=== PATIENT | male | born 1945 | race Caucasian/White ===

== ENCOUNTER 2019-05-09 22:39 | Inpatient (IN) | payer MEDICARE, SELFPAY ==
[2019-05-09 22:39] VITALS: BP 135/85; PULSE 84; RESP 20; TEMP 37.1; O2SAT 100; BMI 23.8
[2019-05-09 23:00] VITALS: BP 137/55; PULSE 83; RESP 18; O2SAT 100
[2019-05-09 23:03] LABS: Add Manual Diff / Slide Review NO; Basophils Absolute Auto 0 /uL (0-100); Basophils Percent Auto 0.4 % (0-2); Eosinophils Absolute Auto 100 /uL (0-450); Eosinophils Percent Auto 0.9 % (2-4); Hematocrit 32.9 % (41-53); Hemoglobin 10.2 g/dL (13.5-17.5); Lymphocytes Absolute Auto 800 /uL (1100-4500); Lymphocytes Percent Auto 6.4 % (25-40); Mean Corpuscular HGB Conc 30.9 % (30-36); Mean Corpuscular Hemoglobin 20.9 PG (26-34); Mean Corpuscular Volume 67.7 fL (80-100); Monocytes Absolute Auto 500 /uL (0-900); Monocytes Percent Auto 4.2 % (3-14); Neutrophils Absolute Auto 10700 /uL (1500-7000); Neutrophils Percent Auto 88.1 % (50-75); Platelet Count 248 X10^3/uL (150-400); Red Blood Cell Count 4.86 X10^6/uL (4.5-5.9); Red Cell Distribution Width 19.6 % (11.6-14.8); White Blood Cell Count 12.2 X10^3/uL (4.5-11.0)
[2019-05-09 23:08] LABS: INR 1.1 (0.9-1.3)
[2019-05-09 23:10] LABS: PTT Partial Thromboplastin Tim 28 SECONDS (26.4-36.2)
[2019-05-09 23:12] LABS: Alanine Aminotransferase 21 IU/L (21-72); Albumin Globulin Ratio 1.3 (1.0-2.8); Alkaline Phosphatase 97 U/L (38-126); Aspartate Aminotransferase 28 IU/L (17-59); Bilirubin Total 0.5 mg/dL (0.2-1.3); Blood Urea Nitrogen 28 mg/dL (9-20); Carbon Dioxide 31 mmol/L (22-32); Chloride 99 mmol/L (98-107); Estimated Glomerular Filt Rate > 60.0 mL/min (>60); Glucose 165 mg/dL (80-110); HEMOLYSIS < 15 (0-50); Lipase 83 U/L (23-300); Potassium 3.8 mmol/L (3.4-5.1); Sodium 138 mmol/L (137-145)
--- NOTE | 2019-05-09 23:15 | ED_ITS ---
HPI - Abdominal Pain General Chief Complaint: Abdominal Pain Stated Complaint: epigastric ruq pain,nausea Time Seen by Provider: 05/09/19 23:15 Source: patient and EMS Mode of arrival: EMS Limitations: no limitations History of Present Illness HPI narrative: The patient arrives from [facility] by air ambulance. He had diarrhea yesterday, bowel movements normalized today. He assumed he had a gastroenteritis. About 3 ago he developed severe epigastric pain. He has nausea, but he cannot vomit. Pain is persistent. The pain is not radiating. He has CHF and takes Lasix. He has normal urine output. He does have a history of AFib. He takes aspirin no under anticoagulants. He has no history of PUD. He had no blood past yesterday when he had the diarrhea. He has no history of GI bleed. He does have a history of Crohn's disease, but has been asymptomatic for extended period of time. He also has chronic anemia. He has no sweats or chills. He has no chest pain or dyspnea with current symptoms. He has no pain similar to this previously. He has no history of GI surgery. Related Data Allergies Allergy/AdvReac Type Severity Reaction Status Date / Time codeine Allergy Verified 05/09/19 23:34 morphine Allergy Verified 05/09/19 23:34 Opioids - Morphine Analogues Allergy Verified 05/09/19 23:34 Review of Systems Review of Systems ROS Unobtainable: All systems reviewed & are unremarkable except as noted in HPI and below Constitutional Constitutional: Denies chills, Denies fever(s), Denies lethargy and Denies weakness Eyes Eyes: Denies change in vision ENT Ears, Nose, Mouth, and Throat: Denies change in voice, Denies neck pain and Denies sore throat Cardiovascular Cardiovascular: Denies chest pain, Denies lightheadedness, Denies palpitations, Denies dyspnea and Denies orthopnea Respiratory Respiratory: Denies cough, Denies dyspnea and Denies wheezing Comments: No orthopnea Gastrointestinal Gastrointestinal: Reports as per HPI, Reports abdominal pain, Reports diarrhea and Reports nausea Genitourinary Comments: No urinary complaints Musculoskeletal Musculoskeletal: Denies back pain and Denies neck pain Integumentary/Breasts Skin/Breast: Denies erythema and Denies rash Neurologic Neurologic: Denies confusion and Denies weakness Psychiatric Psychiatric: Denies anxiety, Denies confusion, Denies depression and Denies homicidal ideation Endocrine Endocrine: Denies palpitations Hematologic/Lymphatic Hematologic/Lymphatic: Denies easy bruising Allergic/Immunologic Allergic/Immunologic: Denies wheezing [facility] Medical History Atrial fibrillation (Acute) CHF (congestive heart failure) (Acute) Crohns disease (Acute) Surgical History No pertinent past surgical history (Acute) Social History Smoking Status: Never smoker Social History Smoking Status: Never smoker Exam Initial Vital Signs Initial Vital Signs: Vital Signs Temperature 98.8 F 05/09/19 22:39 Pulse Rate 84 05/09/19 22:39 Respiratory Rate 20 05/09/19 22:39 Blood Pressure 135/85 05/09/19 22:39 Pulse Oximetry 100 05/09/19 22:39 Const General: cooperative and well developed Nutritional Appearance: well nourished Orientation: alert, awake, oriented x3 and not confused Other: He appears uncomfortable [facility] Head: normocephalic and atraumatic Face and sinus: sinuses nontender Mouth: oral mucosae normal and moist mucous membranes Throat: posterior oropharynx abnormal Eyes General: appearance normal, both eyes and all related structures Eyelids: eyelids normal Conjunctivae: other (Spelled conjunctiva) Sclera: sclerae normal Pupils: PERRL EOM: EOM intact bilaterally Neck Neck: No JVD Chest Chest: normal inspection of the chest Resp Effort & Inspection: normal respiratory effort and able to speak in complete sentences Auscultation: clear to auscultation bilaterally, no rales, no rhonchi and no wheezes Cardio Rate: regular rate Rhythm: regular rhythm Heart Sounds: no click, no gallops, no murmurs and no rubs Pulses: normal peripheral pulses GI Inspection: distended Palpation: no hepatosplenomegaly and No pulsatile mass Auscultation: absent bowel sounds Other: Acutely tender in the epigastric/upper abdomen with guarding and rebound. Back/Spine/Pelvis Back: No CVA tenderness Skin General: no rashes or lesions noted, No jaundice and No petechiae Neuro General: alert, oriented x3, gait normal and no focal motor deficits Speech: speech normal Extrem General: full ROM, no pedal edema and no calf tenderness Course Course Course Narrative: The patient arrived with an acute abdomen. CT confirmed this with perforation, CT findings consistent with gastritis and perforation associated with his stomach. He was treated with Protonix. Once the diagnosis is clarified he was given IV Zosyn and Diflucan. Dr. Thomas, general surgeon, was consulted. He has been evaluated by the on-call surgery and will go to the OR. Orders Ordered: ED Orders 05/09/19 22:42 EKG-12 Lead Stat 05/09/19 22:51 Complete Blood Count AUTO DIFF Stat Comprehensive Metabolic Panel Stat Lipase Stat Partial Thromboplastin Time Stat Prothrombin Time INR Stat 05/09/19 23:22 CT abdomen pelvis w con Stat Sodium Chloride (Normal Saline 0.9%) 1,000 mls @ 150 mls/hr IV CONT MANNY Last Infusion: 05/10/19 02:02 Dose: 0 mls/hr Documented by: Infusion: 05/09/19 23:46 Dose: 1,000 mls/hr Documented by: Infusion: 05/09/19 23:32 Dose: 0 mls/hr Documented by: Admin: 05/09/19 23:32 Dose: 150 mls/hr Documented by: DYLLAN Discontinued Medications Fentanyl (Sublimaze) 50 mcg IV NOW ONE Stop: 05/10/19 01:00 Last Admin: 05/10/19 01:18 Dose: 50 mcg Documented by: DYLLAN Hydromorphone HCl (Dilaudid) 1 mg IV NOW ONE Stop: 05/09/19 23:23 Last Admin: 05/10/19 00:17 Dose: Not Given Documented by: DYLLAN Piperacillin/Tazobactam/Dextrose (Zosyn) 4.5 gm in 100 mls @ 200 mls/hr IV NOW ONE Stop: 05/10/19 01:27 Last Admin: 05/10/19 01:25 Dose: Not Given Documented by: DYLLAN Fluconazole (Diflucan) 200 mg in 100 mls @ 100 mls/hr IV NOW ONE Stop: 05/10/19 01:58 Piperacillin/Tazobactam/Dextrose (Zosyn) 3.375 gm in 50 mls @ 100 mls/hr IV NOW ONE Stop: 05/10/19 01:54 Last Infusion: 05/10/19 02:03 Dose: 0 mls/hr Documented by: Admin: 05/10/19 01:27 Dose: 100 mls/hr Documented by: DYLLAN Ondansetron HCl (Zofran) 4 mg IV NOW ONE Stop: 05/09/19 23:23 Last Admin: 05/09/19 23:31 Dose: 4 mg Documented by: DYLLAN Pantoprazole Sodium (Protonix) 40 mg IV NOW ONE Stop: 05/09/19 23:23 Last Admin: 05/09/19 23:31 Dose: 40 mg Documented by: DYLLAN Vital Signs Vital signs: Vital Signs - 8 hr 05/09/19 22:39 05/10/19 00:42 05/10/19 01:00 Temperature 98.8 F Pulse Rate 84 84 92 H Respiratory Rate 20 20 Blood Pressure 135/85 Blood Pressure [Left Arm] 143/63 H 158/64 H Pulse Oximetry 100 97 96 MDM - Abdominal Pain Lab Data Result diagrams: 05/09/19 22:51 05/09/19 22:51 Labs: Lab Results 05/09/19 05/09/19 05/09/19 Range/Units 22:51 22:51 22:51 WBC 12.2 H (4.5-11.0) X10^3/uL RBC 4.86 (4.5-5.9) X10^6/uL Hgb 10.2 L (13.5-17.5) g/dL Hct 32.9 L (41-53) % MCV 67.7 L (80-100) fL MCH 20.9 L (26-34) PG MCHC 30.9 (30-36) % RDW 19.6 H (11.6-14.8) % Plt Count 248 (150-400) X10^3/uL Neut % (Auto) 88.1 H (50-75) % Lymph % (Auto) 6.4 L (25-40) % [place] % (Auto) 4.2 (3-14) % Eos % (Auto) 0.9 L (2-4) % Baso % (Auto) 0.4 (0-2) % Neut # (Auto) 38098 H (4835-7179) /uL Lymph # (Auto) 800 L (6239-3019) /uL [place] # (Auto) 500 (0-900) /uL Eos # (Auto) 100 (0-450) /uL Baso # (Auto) 0 (0-100) /uL RBC Morphology See below Hypochromasia 1+ H Anisocytosis 2+ H Microcytosis 1+ H PT 13.0 H (10.1-12.7) SECONDS INR 1.1 (0.9-1.3) APTT 28 (26.4-36.2) SECONDS Sodium 138 (137-145) mmol/L Potassium 3.8 (3.4-5.1) mmol/L Chloride 99 (98-107) mmol/L Carbon Dioxide 31 (22-32) mmol/L BUN 28 H (9-20) mg/dL Creatinine 1.00 (0.66-1.25) mg/dL Estimated GFR > 60.0 (>60) mL/min BUN/Creatinine Ratio 28.0 H (6-22) Glucose 165 H (80-110) mg/dL Calcium 9.0 (8.4-10.2) mg/dL Total Bilirubin 0.5 (0.2-1.3) mg/dL AST 28 (17-59) IU/L ALT 21 (21-72) IU/L Alkaline Phosphatase 97 (38-126) U/L Total Protein 7.0 (6.3-8.2) g/dL Albumin 4.0 (3.5-5.0) g/dL Globulin 3.0 (1.7-4.1) g/dL Albumin/Globulin Ratio 1.3 (1.0-2.8) Lipase 83 (23-300) U/L Imaging Data CT scan - abdomen: Radiologist's impression: Intra-abdominal free air concerning for hollow visceral perforation. Hyper distended stomach with characteristics consistent with superimposed gastritis. Findings likely secondary to inflammatory versus infectious etiology. 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 ECG Data Attestation: I personally reviewed and interpreted this ECG as follows: Interpretation: AFib rate 77 beats per minute. No acute ST changes. Critical Care Time Critical Care Time Critical Care Time: Yes Total Critical Care Time: 45 Attestation: Evaluation included initial evaluation of patient, evaluation of lab and radiology studies, multiple clinical decisions, and consultation with the on-call surgeon proceeding transfer the patient to the ER. Discharge Plan Departure Patient Disposition: Admitted As Inpatient Clinical Impression: Perforated abdominal viscus Admit Date/Time: 05/10/19 01:08 Admit Provider: Minh Thomas
--- NOTE | 2019-05-09 23:22 | DI.CT.S_ITS ---
PROCEDURE: CT ABDOMEN PELVIS W CON INDICATIONS: Severe epigastric pain TECHNIQUE: After the administration of intravenous contrast, 5 mm thick sections acquired from the diaphragm to the symphysis. 5 mm coronal and sagittal reformats were acquired. For radiation dose reduction, the following was used: automated exposure control, adjustment of mA and/or kV according to patient size. COMPARISON: None. FINDINGS: Image quality: Excellent. ABDOMEN: Lung bases: Peripheral right middle lobe scarring. Heart size is normal. Solid organs: Liver is normal in size and enhancement. Gallbladder appears unremarkable. Biliary system is non dilated. Pancreas enhances normally. Spleen is normal in size and enhancement. No adrenal nodules. Kidneys demonstrate normal size and enhancement, without hydronephrosis. Partially exophytic 3.0 cm upper pole left renal cyst. Peritoneum and bowel: Small hiatal hernia. There is diffuse wall thickening of the distal esophagus with irregular, circumferential wall thickening of the distal gastric antrum and pylorus. There is focal area of thinning suggested near the ventral side of the gastric antrum best seen on image 27, series 2. There is moderate surrounding inflammatory changes as well as extraluminal locules of air. There is also a moderate amount of pneumoperitoneum in the upper abdomen. Scattered free fluid noted in the upper abdomen, more pronounced on the right side extending caudally along the paracolic gutter. Moderate amount of fecal material noted throughout the colon but most pronounced in the ascending colon, sigmoid colon and rectum. Findings are compatible with fecal stasis/constipation. Remaining bowel loops demonstrate normal wall thickness and caliber with nonspecific fluid filled loops of small bowel. Nodes and vessels: No retroperitoneal or mesenteric adenopathy by size criteria. Aorta and inferior vena cava are normal in size. Scattered atherosclerotic calcifications of the abdominal aorta and iliac vessels without aneurysmal dilatation. Miscellaneous: No ventral hernias. PELVIS: Genitourinary: Bladder wall thickness is normal. Miscellaneous: No pelvic adenopathy. Small fat containing bilateral inguinal hernias without acute inflammation. Bones: No suspicious bony lesions. No acute compression fractures of the imaged spine. Multilevel spondylosis. IMPRESSION: 1. Findings compatible with moderate gastritis and peptic ulcer disease with associated perforation. Location of perforation likely near the distal gastric antrum. There is a moderate amount of surrounding inflammation and moderate pneumoperitoneum. 2. Small lateral hernia with findings suggestive of distal esophagitis. 3. Fecal stasis/constipation. 4. Numerous loops of fluid-filled small bowel. This is nonspecific but may represent enteritis. No significant discrepancy with the shift foreman radiology preliminary report. Preliminary findings were discussed with Dr. Ness of emergency department by the overnight radiologist at 0055 hours. Dictated by: Javi Hurt M.D. on 05/10/2019 at 9:28 Approved by: Javi Hurt M.D. on 05/10/2019 at 9:41
[2019-05-09 23:23] LABS: Anisocytosis 2+; Hypochromasia 1+; Microcytosis 1+
[2019-05-09 23:30] VITALS: BP 134/60; PULSE 85; RESP 21; O2SAT 100
[2019-05-09] MEDS: ONDANSETRON 4 MG/2 ML INJ IV (23:31)
[2019-05-09] MEDS: PANTOPRAZOLE 40 MG VIAL IV (23:31)
[2019-05-09] MEDS: SODIUM CHLORIDE 0.9% 1,000 ML 150 ML IV (23:32)
--- NOTE | 2019-05-09 23:45 | PC.NURSE ---
oral contrast started.
[2019-05-10] VITALS (23 sets, daily range): BP systolic 107–158; BP diastolic 43–90; PULSE 75–104; RESP 10–25; TEMP 36.4–37.1; O2SAT 91–100; BMI 30.7
--- NOTE | 2019-05-10 00:14 | PC.NURSE ---
patient unable to hold down the oral contrast. patient vomited 2x. Dr. Ness notified and he ordered for the CT scan to just be done with IV contrast.
[2019-05-10] MEDS: fentaNYL 100 MCG/2 ML INJ 50 MCG IV (01:18)
[2019-05-10] MEDS: PIPERACILLIN-TAZO 3.375 GM/50 ML FROZ.PIGGY IV ×4 (01:27→18:58)
--- NOTE | 2019-05-10 01:30 | P.HP_ITS ---
History of Present Illness History of Present Illness Date Patient Seen: 05/10/19 Time Patient Seen: 01:59 Chief complaint: epigastric ruq pain,nausea Narrative: 74-year-old male with a perforated peptic ulcer. The patient is a 74-year-old male recently began taking increased amounts of uncoated aspirin over the past 4 days developed acute onset of epigastric pain tonight associated with nausea and vomiting. He was flown from [facility], CT shows free air as well as fluid around the stomach and the duodenum. His medical history is significant for Crohn's disease remotely. He had multiple endo rectal procedures done in the for Crohn's colitis. His Crohn's disease and has been in remission for the past two decades and he is not currently on therapy. Medical history significant for congestive heart failure, atrial fibrillation and previous exploratory laparotomy in [facility] for unclear reasons. Patient History Medical History Atrial fibrillation (Acute) CHF (congestive heart failure) (Acute) Crohns disease (Acute) Surgical History No pertinent past surgical history (Acute) Social History Smoking Status: Never smoker Family & Social History Safety & Behavioral: Feels Safe in Current Yes Environment Been Physically Hurt or No Threatened By a Person Tobacco & Substance use: Smoking Status Never smoker Substance Use Type does not use Meds Home Medications and Allergies Allergies Allergy/AdvReac Type Severity Reaction Status Date / Time codeine Allergy Verified 05/09/19 23:34 morphine Allergy Verified 05/09/19 23:34 Opioids - Morphine Analogues Allergy Verified 05/09/19 23:34 Review of Systems Review of Systems ROS Unobtainable: All systems reviewed & are unremarkable except as noted in HPI and below Exam Vital Signs (past 8 hours): - 05/09/19 22:39 05/10/19 00:42 05/10/19 01:00 Temperature 98.8 F Pulse Rate 84 84 92 H Respiratory Rate 20 20 Blood Pressure 135/85 Blood Pressure [Left Arm] 143/63 H 158/64 H Pulse Oximetry 100 97 96 Oxygen Delivery Method Room Air Narrative Exam Narrative: General-adult male with significant discomfort, well nourished HEENT-moist mucous membranes, no scleral icterus Neck-supple, no lymphadenopathy Chest- no labored respirations, clear to auscultation bilaterally Cardiac-regular rate and rhythm Abdomen-peritonitis. lower transverse incision Extremities-no edema, warm well perfused Neurological-alert and oriented x 3. No focal deficits Skin-normal temperature and turgor, no rashes or ulcers Objective Labs Result Diagrams: 05/09/19 22:51 05/09/19 22:51 Labs: Laboratory Results - last 24 hr 05/09/19 05/09/19 05/09/19 22:51 22:51 22:51 WBC 12.2 H RBC 4.86 Hgb 10.2 L Hct 32.9 L MCV 67.7 L MCH 20.9 L MCHC 30.9 RDW 19.6 H Plt Count 248 Neut % (Auto) 88.1 H Lymph % (Auto) 6.4 L [place] % (Auto) 4.2 Eos % (Auto) 0.9 L Baso % (Auto) 0.4 Neut # (Auto) 79301 H Lymph # (Auto) 800 L [place] # (Auto) 500 Eos # (Auto) 100 Baso # (Auto) 0 RBC Morphology See below Hypochromasia 1+ H Anisocytosis 2+ H Microcytosis 1+ H PT 13.0 H INR 1.1 APTT 28 Sodium 138 Potassium 3.8 Chloride 99 Carbon Dioxide 31 BUN 28 H Creatinine 1.00 Estimated GFR > 60.0 BUN/Creatinine Ratio 28.0 H Glucose 165 H Calcium 9.0 Total Bilirubin 0.5 AST 28 ALT 21 Alkaline Phosphatase 97 Total Protein 7.0 Albumin 4.0 Globulin 3.0 Albumin/Globulin Ratio 1.3 Lipase 83 Assessment & Plan Assessment and plan (1) Peptic ulcer: Current visit: Yes Status: Acute Assessment & Plan narrative: 74-year-old male with acute epigastric pain, workup consistent with perforated peptic ulcer. Hemodynamically stable, with peritonitis. CT reviewed personally demonstrates free air and fluid around the stomach and duodenum. Recent signficant ASA use. Multiple prior abdominal surgeries and a history of Crohn's disease not on therapy currently, and congestive heart failure. -exploratory laparotomy with Scott patch repair. I discussed the risks of the operation with him including bleeding infection damage to surrounding structures leak need for further procedure. His questions have been answered and he is in agreement with this plan -Zosyn and fluconazole -ICU postoperatively -NPO IV fluids Grant catheter
[2019-05-10] MEDS: LACTATED RINGERS 1,000 ML 42 ML IV (02:15)
--- NOTE | 2019-05-10 02:45 | PC.NURSE ---
i attempted to do patients medication reconcile but patient left for surgery. medication reconciliation not done because i cannot verify with the patient when he takes what medication.
--- NOTE | 2019-05-10 02:52 | SUR.OPER ---
Supine on padded OR bed, head on pillow, arms secured on padded arm boards at <90 degrees abduction, legs uncrossed, safety belt at thigh, tape over blanket over lower legs.
--- NOTE | 2019-05-10 03:49 | PM.OP.1 ---
Operative Date/Time/Diagnoses Date of procedure: 05/10/19 Time of procedure: 03:49 Pre-op diagnosis: Perforated Peptic ulcer Post-op diagnosis: same Procedure & Clinicians Procedure: Exploratory laparotomy Scott patch repair peptic ulcer Same procedure as scheduled: Yes Indications: 74-year-old man who developed acute epigastric pain CT abdomen pelvis with free fluid in for free air with fluid around the stomach and duodenum. He has been on high dose of uncoated aspirin recently. Surgeon: Minh Thomas Click Yes if Unassisted: No Anesthesia Type: General Operative Notes Findings: perforation on anterior aspect of pyloric channel Estimated Blood Loss (mL): 50 Procedure in detail: Patient was brought to the operating room placed supine on the table. Bilateral lower extremity compression devices were applied. He received 3.375 g of Zosyn prior to skin incision. General anesthesia was induced and he was intubated with an endotracheal tube. He was prepped and draped in sterile fashion. A time-out was performed ensure the correct patient procedure necessary equipment within the operating room. I made a generous midline incision and the subcutaneous tissues were divided with electrocautery. The omentum was plastered to the midline secondary to previous abdominal surgery. The omentum was mobilized off of the fascia and the abdomen entered. There was a significant amount of free fluid within the abdomen gastric in appearance. The stomach was inspected and there was a perforation on the anterior aspect of the pyloric channel. The ulcer edges were fairly clean the ulcer was approximately of 5 mm in diameter. The ulcer was primarily closed with [id number] Vicryl suture. I then mobilized a tongue of the greater omentum as a pedicled flap which was overlaid on top of the ulcer. This was secured to the stomach using interrupted with 3 0 silk suture. Hemostasis was obtained. The abdomen was then irrigated with several liters of sterile water. The fascia was closed with #1 Maxon in running fashion. The skin was then irrigated and closed with ashley. Patient tolerated the procedure well. Sponge instrument count at the end operation was correct. The emerged from anesthesia and was transferred to the postoperative care unit in stable condition. Post-operative Condition: stable Disposition: ICU
[2019-05-10] MEDS: ACETAMINOPHEN IV 1,000 MG/100 ML VIAL 400 MG IV (04:10)
[2019-05-10] MEDS: DEXTROSE 5%-0.9% NS 1,000 ML 100 ML IV ×2 (05:06→18:59)
[2019-05-10] MEDS: LORazepam 2 MG/ML INJ 0.25 MG IV (05:20)
[2019-05-10] MEDS: HYDROMORPHONE 0.5 MG INJ IV ×2 (05:21→13:53)
[2019-05-10] MEDS: FLUCONAZOLE 400 MG/200 ML PIGGYBACK 100 MG IV (05:30)
--- NOTE | 2019-05-10 07:04 | PC.NURSE ---
Received patient from PACU at 0430. A/Ox3, mildly anxious r/t Grant, which is patent and draining clear yellow urine. IV lorazepam and IV Dilaudid given per prn orders. NGT patent to LIS, dark bile fluid out. Abdominal drsg CDI. A-fib CVR, VSS, SpO2 98% on 2L NC. SCDs on.
[2019-05-10 12:13] LABS: Hematocrit 31.1 % (41-53); Hemoglobin 9.6 g/dL (13.5-17.5); Mean Corpuscular HGB Conc 30.8 % (30-36); Mean Corpuscular Hemoglobin 21.1 PG (26-34); Mean Corpuscular Volume 68.4 fL (80-100); Platelet Count 229 X10^3/uL (150-400); Red Blood Cell Count 4.55 X10^6/uL (4.5-5.9); Red Cell Distribution Width 19.5 % (11.6-14.8); White Blood Cell Count 14.8 X10^3/uL (4.5-11.0)
[2019-05-10 12:14] LABS: Add Manual Diff / Slide Review YES
[2019-05-10 12:23] LABS: BUN Creatinine Ratio 20.9 (6-22); Blood Urea Nitrogen 23 mg/dL (9-20); Calcium 8.8 mg/dL (8.4-10.2); Carbon Dioxide 30 mmol/L (22-32); Chloride 100 mmol/L (98-107); Estimated Glomerular Filt Rate > 60.0 mL/min (>60); Glucose 238 mg/dL (80-110); HEMOLYSIS < 15 (0-50); Potassium 4.4 mmol/L (3.4-5.1); Sodium 140 mmol/L (137-145)
[2019-05-10 12:42] LABS: Neutrophils Absolute Manual 13320 /uL (3000-5900); Total Cells Counted 100
[2019-05-10 12:43] LABS: Anisocytosis 1+
--- NOTE | 2019-05-10 13:20 | CM.DANOTE ---
DCP Assessment: Reviewed EMR. Pt is a 74 yr old male who was admitted to the hospital through the ED for a peptic ulcer bleed. Pt had a peptic ulcer repair preformed by Dr. Marhta Wilkinson on 05/10/19. PCP not listed. Pt current lives with his brother on [address] in the Guest house on the his property. Pt stated his family is currently out of the country in [place] for a month. Insurance: 1st payer: medicare 2nd payer: self pay. pt stated concern for medical bill exceeding his medicare maximum. RN offered pt to speak with admission counselors to discuss insurance and financial issues. Pt agreed and call was placed to admission counselors to F/U. Plan: current discharge plan is unclear at this time and will need further F/U once pt is more stable. Pt is very active and travels regularly, pt is completely 'I at baseline with Sudha Gipson RN Discharge Planning/Care Management CM Discharge Assessment Start: 05/10/19 13:15 Freq: Status: Active Protocol: Document 05/10/19 13:16 HS (Rec: 05/10/19 13:19 [id number]) Discharge Planning Assessment Assigned Toy Department Manager Any Gipson RN DPOA/Assigned Designee Name Bharath Catalan (brother) Contact Information [phone] Advance Directives? No History Provided By Patient,Medical Record Has Patient been admitted in last 30 No days? Prior Living Arrangements House Comment pt lives on his brothers property in the guest house on [address] Household Members family Type of transporation used prior to Drives own vehicle admit Independent with ADL's Yes Is patient alert and oriented? Yes Caregiver for Another No Comment Discharge needs unclear at this time will continue to monitor. Whiteboard Updated in Patient Room with Yes name and ext. # of Toy Department Manager Review Status In Process Next Review Type Continued Stay Review
[2019-05-10] MEDS: AMOXICILLIN 250 MG CAPSULE 1000 MG PO ×2 (13:45→21:17)
[2019-05-10] MEDS: CLARITHROMYCIN 500 MG TABLET PO ×2 (13:45→21:17)
[2019-05-10] MEDS: metroNIDAZOLE 500 MG TABLET PO ×2 (13:46→21:19)
[2019-05-10] MEDS: SODIUM CHLORIDE 0.9% 1,000 ML 1000 ML IV (13:46)
--- NOTE | 2019-05-10 14:10 | PC.NURSE ---
pt pod #1- s/p exp lap for perforated peptic ulcer, vss afebrile- medicated for incisional pain x 1 with iv dialudid ( o.5mg) which was effective, suazo with adequate uop, ngt clamped for 1 hour post po meds per md orders, denies nausea and up to chair with SBA. Changed to floor care per Dr. Thomas's verbal order this am.- otherwise remaining npo
[2019-05-10] MEDS: HYDROMORPHONE 1 MG INJ IV (19:32)
[2019-05-10] MEDS: NITROGLYCERIN 0.4 MG SL TAB SL (21:00)
[2019-05-10] MEDS: HYDROMORPHONE 2 MG INJ 1 MG IV (21:18)
[2019-05-10] MEDS: PANTOPRAZOLE 40 MG TABLET PO (21:19)
[2019-05-10 21:30] LABS: Creatine Kinase 222 U/L (55-170)
[2019-05-10 21:43] LABS: Troponin I < 0.012 ng/mL (0.01-0.034)
[2019-05-10 21:46] LABS: CKMB % Relative Index 0.9 % (1.5-5.0)
--- NOTE | 2019-05-10 21:57 | PC.NURSE ---
1699 - Pt c/o of 7 of 10 abd pain following repositioning. Discussed pain control options. Educated to splinting and turning to side lying prior to attempting to sit up. Maddison CABRALES. paged to review pain medication orders. Pt declines to have additional medication at this time. Monitor. 1934 - Pt again c/o 7 of 10 pain, increasing with hiccups. Dilaudid given. Pt resting quietly with cool cloth over his eyes. 2044 - Pt heard to be moaning and tachypneic. Pt reports sudden onset chest and shoulder pain. Chest pain is sharp with a dull ache to bilateral clavicles. The worst pain I have ever had. Dr. Ryan notified. Orders obtained. Following 1 nitro s.l. pt pain reduced to a 7 of 10, following a now dose of Dilaudid, pt reports pain reduced to 2 of 10. EKG, cardiac labs obtained.
--- NOTE | 2019-05-10 22:44 | P.PN_ITS ---
Subjective Subjective Date Patient Seen: 05/10/19 Time Patient Seen: 19:56 Interval history: Patient was having chest pain across his mid chest radiating into his shoulders. It was the worst pain he has ever felt. It was worse than when his shoulder was dislocated. Exam Vital Signs (past 8 hours): - 05/10/19 16:00 05/10/19 20:00 05/10/19 20:47 Temperature 98.2 F 98.4 F Pulse Rate 75 88 87 Respiratory Rate 18 18 Blood Pressure 124/65 131/60 154/87 H Pulse Oximetry 99 05/10/19 21:00 05/10/19 21:05 Temperature Pulse Rate 94 H 88 Respiratory Rate Blood Pressure 154/87 H 153/86 H Pulse Oximetry Oxygen Delivery Method Room Air Oxygen Flow Rate 0 Narrative Exam Narrative: Lungs are clear. Heart distant tones. No murmurs. Objective Labs Result Diagrams: 05/10/19 11:53 05/10/19 11:53 Labs: Laboratory Results - last 24 hr 05/09/19 05/09/19 05/09/19 22:51 22:51 22:51 WBC 12.2 H RBC 4.86 Hgb 10.2 L Hct 32.9 L MCV 67.7 L MCH 20.9 L MCHC 30.9 RDW 19.6 H Plt Count 248 Neut % (Auto) 88.1 H Lymph % (Auto) 6.4 L [place] % (Auto) 4.2 Eos % (Auto) 0.9 L Baso % (Auto) 0.4 Neut # (Auto) 74492 H Lymph # (Auto) 800 L [place] # (Auto) 500 Eos # (Auto) 100 Baso # (Auto) 0 Total Counted Seg Neutrophils % Band Neutrophils % Lymphocytes % (Manual) Monocytes % (Manual) Neutrophils # (Manual) RBC Morphology See below Hypochromasia 1+ H Anisocytosis 2+ H Microcytosis 1+ H PT 13.0 H INR 1.1 APTT 28 Sodium 138 Potassium 3.8 Chloride 99 Carbon Dioxide 31 BUN 28 H Creatinine 1.00 Estimated GFR > 60.0 BUN/Creatinine Ratio 28.0 H Glucose 165 H Calcium 9.0 Total Bilirubin 0.5 AST 28 ALT 21 Alkaline Phosphatase 97 Total Creatine Kinase CK-MB (CK-2) CK-MB (CK-2) Rel Index Troponin I Total Protein 7.0 Albumin 4.0 Globulin 3.0 Albumin/Globulin Ratio 1.3 Lipase 83 Nasal Screen MRSA (PCR) 05/10/19 05/10/19 05/10/19 04:45 11:53 11:53 WBC 14.8 H RBC 4.55 Hgb 9.6 L Hct 31.1 L MCV 68.4 L MCH 21.1 L MCHC 30.8 RDW 19.5 H Plt Count 229 Neut % (Auto) Not Reportable Lymph % (Auto) Not Reportable [place] % (Auto) Not Reportable Eos % (Auto) Not Reportable Baso % (Auto) Not Reportable Neut # (Auto) Lymph # (Auto) Not Reportable [place] # (Auto) Not Reportable Eos # (Auto) Baso # (Auto) Not Reportable Total Counted 100 Seg Neutrophils % 80.0 H Band Neutrophils % 10.0 H Lymphocytes % (Manual) 6.0 L Monocytes % (Manual) 4.0 Neutrophils # (Manual) 63986 H RBC Morphology Not Reportable Hypochromasia Anisocytosis 1+ H Microcytosis PT INR APTT Sodium 140 Potassium 4.4 Chloride 100 Carbon Dioxide 30 BUN 23 H Creatinine 1.10 Estimated GFR > 60.0 BUN/Creatinine Ratio 20.9 Glucose 238 H Calcium 8.8 Total Bilirubin AST ALT Alkaline Phosphatase Total Creatine Kinase CK-MB (CK-2) CK-MB (CK-2) Rel Index Troponin I Total Protein Albumin Globulin Albumin/Globulin Ratio Lipase Nasal Screen MRSA (PCR) Negative for mrsa 05/10/19 21:10 WBC RBC Hgb Hct MCV MCH MCHC RDW Plt Count Neut % (Auto) Lymph % (Auto) [place] % (Auto) Eos % (Auto) Baso % (Auto) Neut # (Auto) Lymph # (Auto) [place] # (Auto) Eos # (Auto) Baso # (Auto) Total Counted Seg Neutrophils % Band Neutrophils % Lymphocytes % (Manual) Monocytes % (Manual) Neutrophils # (Manual) RBC Morphology Hypochromasia Anisocytosis Microcytosis PT INR APTT Sodium Potassium Chloride Carbon Dioxide BUN Creatinine Estimated GFR BUN/Creatinine Ratio Glucose Calcium Total Bilirubin AST ALT Alkaline Phosphatase Total Creatine Kinase 222 H CK-MB (CK-2) 1.90 CK-MB (CK-2) Rel Index 0.9 L Troponin I < 0.012 Total Protein Albumin Globulin Albumin/Globulin Ratio Lipase Nasal Screen MRSA (PCR) Assessment & Plan Assessment & Plan narrative: Patient was placed on supplemental oxygen, given sublingual nitro, Dilaudid, and Ativan. His EKG showed no evidence of ischemia. His pain resolved and he was left with his pain in his abdomen. I believe this was atypical chest pain and not cardiac related. Cardiac enzymes negative.
[2019-05-11] VITALS (8 sets, daily range): BP systolic 131–141; BP diastolic 72–83; PULSE 86–92; RESP 20–26; TEMP 36.4–38.2; O2SAT 90–99
[2019-05-11] MEDS: HYDROMORPHONE 1 MG INJ IV ×5 (01:31→21:00)
[2019-05-11] MEDS: LORazepam 2 MG/ML INJ 0.5 MG IV ×3 (01:46→11:55)
[2019-05-11] MEDS: PIPERACILLIN-TAZO 3.375 GM/50 ML FROZ.PIGGY IV ×3 (03:41→20:34)
[2019-05-11] MEDS: FLUCONAZOLE 400 MG/200 ML PIGGYBACK 100 MG IV (04:14)
[2019-05-11 05:25] LABS: Add Manual Diff / Slide Review NO; Basophils Absolute Auto 0 /uL (0-100); Basophils Percent Auto 0.1 % (0-2); Eosinophils Absolute Auto 0 /uL (0-450); Hematocrit 30.3 % (41-53); Hemoglobin 9.2 g/dL (13.5-17.5); Lymphocytes Absolute Auto 600 /uL (1100-4500); Lymphocytes Percent Auto 4.1 % (25-40); Mean Corpuscular HGB Conc 30.4 % (30-36); Mean Corpuscular Volume 68.9 fL (80-100); Monocytes Absolute Auto 1200 /uL (0-900); Monocytes Percent Auto 7.7 % (3-14); Neutrophils Absolute Auto 13300 /uL (1500-7000); Neutrophils Percent Auto 88.1 % (50-75); Platelet Count 219 X10^3/uL (150-400); Red Blood Cell Count 4.39 X10^6/uL (4.5-5.9); Red Cell Distribution Width 19.7 % (11.6-14.8); White Blood Cell Count 15.1 X10^3/uL (4.5-11.0)
[2019-05-11 05:31] LABS: BUN Creatinine Ratio 24.4 (6-22); Blood Urea Nitrogen 22 mg/dL (9-20); Calcium 8.6 mg/dL (8.4-10.2); Carbon Dioxide 27 mmol/L (22-32); Chloride 104 mmol/L (98-107); Estimated Glomerular Filt Rate > 60.0 mL/min (>60); Glucose 146 mg/dL (80-110); HEMOLYSIS < 15 (0-50); Magnesium 2.2 mg/dL (1.6-2.3); Phosphorous 3.7 mg/dL (2.3-3.7); Potassium 4.1 mmol/L (3.4-5.1); Sodium 141 mmol/L (137-145)
[2019-05-11 05:51] LABS: Troponin I < 0.012 ng/mL (0.01-0.034)
[2019-05-11 06:18] LABS: Anisocytosis 1+
[2019-05-11] MEDS: DEXTROSE 5%-0.9% NS 1,000 ML 100 ML IV ×2 (08:54→18:26)
[2019-05-11] MEDS: metroNIDAZOLE 500 MG TABLET PO ×2 (11:28→21:00)
[2019-05-11] MEDS: PANTOPRAZOLE 40 MG TABLET PO (11:28)
[2019-05-11] MEDS: CLARITHROMYCIN 500 MG TABLET PO ×2 (11:29→21:00)
[2019-05-11] MEDS: AMOXICILLIN 250 MG CAPSULE 1000 MG PO ×2 (11:29→21:00)
--- NOTE | 2019-05-11 11:33 | PM.PNPO.1 ---
Subjective Subjective Date Patient Seen: 05/11/19 Time Patient Seen: 11:33 Interval history: Had an episode of chest pain overnight which was evaluated with cardiac markers and EKG workup was negative. Has subsequently resolved. Moderate incisional pain well controlled with Dilaudid. Exam Vital Signs (past 8 hours): - 05/11/19 04:24 05/11/19 07:44 Temperature 97.6 F 97.9 F Pulse Rate 86 91 H Respiratory Rate 22 21 Blood Pressure 131/77 134/74 Pulse Oximetry 99 97 Oxygen Delivery Method Nasal Cannula Oxygen Flow Rate 0 Narrative Exam Narrative: General adult male alert oriented no acute distress nasogastric tube in place with gastric content Chest nonlabored respirations no audible wheezes Abdomen appropriately tender to palpation, midline incision clean dry intact Objective Labs Result Diagrams: 05/11/19 04:49 05/11/19 04:49 Labs: Laboratory Results - last 24 hr 05/10/19 05/10/19 05/10/19 11:53 11:53 21:10 WBC 14.8 H RBC 4.55 Hgb 9.6 L Hct 31.1 L MCV 68.4 L MCH 21.1 L MCHC 30.8 RDW 19.5 H Plt Count 229 Neut % (Auto) Not Reportable Lymph % (Auto) Not Reportable [place] % (Auto) Not Reportable Eos % (Auto) Not Reportable Baso % (Auto) Not Reportable Neut # (Auto) Lymph # (Auto) Not Reportable [place] # (Auto) Not Reportable Eos # (Auto) Baso # (Auto) Not Reportable Total Counted 100 Seg Neutrophils % 80.0 H Band Neutrophils % 10.0 H Lymphocytes % (Manual) 6.0 L Monocytes % (Manual) 4.0 Neutrophils # (Manual) 14729 H RBC Morphology Not Reportable Anisocytosis 1+ H Sodium 140 Potassium 4.4 Chloride 100 Carbon Dioxide 30 BUN 23 H Creatinine 1.10 Estimated GFR > 60.0 BUN/Creatinine Ratio 20.9 Glucose 238 H Calcium 8.8 Phosphorus Magnesium Total Creatine Kinase 222 H CK-MB (CK-2) 1.90 CK-MB (CK-2) Rel Index 0.9 L Troponin I < 0.012 05/11/19 05/11/19 05/11/19 04:49 04:49 04:49 WBC 15.1 H RBC 4.39 L Hgb 9.2 L Hct 30.3 L MCV 68.9 L MCH 21.0 L MCHC 30.4 RDW 19.7 H Plt Count 219 Neut % (Auto) 88.1 H Lymph % (Auto) 4.1 L [place] % (Auto) 7.7 Eos % (Auto) 0.0 L Baso % (Auto) 0.1 Neut # (Auto) 60761 H Lymph # (Auto) 600 L [place] # (Auto) 1200 H Eos # (Auto) 0 Baso # (Auto) 0 Total Counted Seg Neutrophils % Band Neutrophils % Lymphocytes % (Manual) Monocytes % (Manual) Neutrophils # (Manual) RBC Morphology See below Anisocytosis 1+ H Sodium 141 Potassium 4.1 Chloride 104 Carbon Dioxide 27 BUN 22 H Creatinine 0.90 Estimated GFR > 60.0 BUN/Creatinine Ratio 24.4 H Glucose 146 H Calcium 8.6 Phosphorus 3.7 Magnesium 2.2 Total Creatine Kinase CK-MB (CK-2) CK-MB (CK-2) Rel Index Troponin I < 0.012 Assessment & Plan Post-op Postoperative Procedures: Procedures Operation Date: 05/10/19 01:55 Actual Procedures Side Surgeon p Exploratory Laparotomy GEN Not Applicable Minh Thomas MD Postoperative day: 1 Postoperative status narrative: 74-year-old male postoperative day 1 status post exploratory laparotomy and Scott patch repair of a perforated peptic ulcer of the pyloric channel. Doing well. Labs reviewed, white blood cell count 15, hematocrit 30 electrolytes within normal limits. -continue nasogastric tube to intermittent suction -Protonix -remove for Grant catheter, urine output is adequate creatinine normal -transfer to floor -continue antibiotics as written -likely remove nasogastric tube 05/12
--- NOTE | 2019-05-11 11:40 | P.PN_ITS ---
Subjective Subjective Date Patient Seen: 05/11/19 Time Patient Seen: 11:40 Interval history: No acute interval events. Tolerated bowel prep. Exam Vital Signs (past 8 hours): - 05/11/19 04:24 05/11/19 07:44 Temperature 97.6 F 97.9 F Pulse Rate 86 91 H Respiratory Rate 22 21 Blood Pressure 131/77 134/74 Pulse Oximetry 99 97 Oxygen Delivery Method Nasal Cannula Oxygen Flow Rate 0 Objective Labs Result Diagrams: 05/11/19 04:49 05/11/19 04:49 Labs: Laboratory Results - last 24 hr 05/10/19 05/10/19 05/10/19 11:53 11:53 21:10 WBC 14.8 H RBC 4.55 Hgb 9.6 L Hct 31.1 L MCV 68.4 L MCH 21.1 L MCHC 30.8 RDW 19.5 H Plt Count 229 Neut % (Auto) Not Reportable Lymph % (Auto) Not Reportable [place] % (Auto) Not Reportable Eos % (Auto) Not Reportable Baso % (Auto) Not Reportable Neut # (Auto) Lymph # (Auto) Not Reportable [place] # (Auto) Not Reportable Eos # (Auto) Baso # (Auto) Not Reportable Total Counted 100 Seg Neutrophils % 80.0 H Band Neutrophils % 10.0 H Lymphocytes % (Manual) 6.0 L Monocytes % (Manual) 4.0 Neutrophils # (Manual) 83580 H RBC Morphology Not Reportable Anisocytosis 1+ H Sodium 140 Potassium 4.4 Chloride 100 Carbon Dioxide 30 BUN 23 H Creatinine 1.10 Estimated GFR > 60.0 BUN/Creatinine Ratio 20.9 Glucose 238 H Calcium 8.8 Phosphorus Magnesium Total Creatine Kinase 222 H CK-MB (CK-2) 1.90 CK-MB (CK-2) Rel Index 0.9 L Troponin I < 0.012 05/11/19 05/11/19 05/11/19 04:49 04:49 04:49 WBC 15.1 H RBC 4.39 L Hgb 9.2 L Hct 30.3 L MCV 68.9 L MCH 21.0 L MCHC 30.4 RDW 19.7 H Plt Count 219 Neut % (Auto) 88.1 H Lymph % (Auto) 4.1 L [place] % (Auto) 7.7 Eos % (Auto) 0.0 L Baso % (Auto) 0.1 Neut # (Auto) 21313 H Lymph # (Auto) 600 L [place] # (Auto) 1200 H Eos # (Auto) 0 Baso # (Auto) 0 Total Counted Seg Neutrophils % Band Neutrophils % Lymphocytes % (Manual) Monocytes % (Manual) Neutrophils # (Manual) RBC Morphology See below Anisocytosis 1+ H Sodium 141 Potassium 4.1 Chloride 104 Carbon Dioxide 27 BUN 22 H Creatinine 0.90 Estimated GFR > 60.0 BUN/Creatinine Ratio 24.4 H Glucose 146 H Calcium 8.6 Phosphorus 3.7 Magnesium 2.2 Total Creatine Kinase CK-MB (CK-2) CK-MB (CK-2) Rel Index Troponin I < 0.012
[2019-05-11] MEDS: PANTOPRAZOLE 40 MG PACKET PO ×2 (14:00→21:00)
--- NOTE | 2019-05-11 15:46 | PC.NURSE ---
Addendum entered by Jessie Lacy R.N. 05/11/19 15:47: 1400-Grnat removed, education for voiding and POC updated. Original Note: Am shift Pt is moaning in discomfort at start of shift. IV Dilaudid given. Pt comfrotable at next check. BT active. Incision is KRISTEL edges well approximated. IVF infusing. Pt reluctant to get up OOB, will continue with pain control and manegment.
--- NOTE | 2019-05-11 19:09 | PC.NURSE ---
Addendum entered by Demi Garcia R.N. 05/11/19 19:38: 1930 - Pt stood at bed side to void. Offered pt to set up in chair. Pt declined. Sat at edge of bed, reinforced IS use. Multiple breaths to 500, Returned to bed, positioned for comfort. Call light in reach. Original Note: 1730 - Pt moaning, reports increased pain to bilateral shoulders. Requesting RX for pain. Pt taking shallow breaths, encouraged slow deep breath. Dilaudid given. NGT tape replaced to nose. temp 100.7, reinforced I.S. use. Pt reports increased pain control following Dilaudid administration. Encourage pt to participate in activity while pain is controlled. Pt declined to get out of bed at this time. I know it's your job, but I am very comfortable right now. Educated to skin integrity, bowel function and prevention of atelectasis. Pt agreeable to be repositioned in bed, but again declines to get up the the chair. That just seems so far away right now. Encouraged pt to consider getting up at some point this evening. Pt agreed to consider. Call light in reach. Monitor.
[2019-05-12] VITALS (9 sets, daily range): BP systolic 126–138; BP diastolic 64–74; PULSE 89–103; RESP 16–25; TEMP 37.3–38.3; O2SAT 93–96
[2019-05-12] MEDS: LORazepam 2 MG/ML INJ 0.5 MG IV ×3 (00:01→08:46)
[2019-05-12] MEDS: HYDROMORPHONE 1 MG INJ IV ×2 (02:17→06:23)
[2019-05-12 05:11] LABS: Basophils Absolute Auto 0 /uL (0-100); Basophils Percent Auto 0.2 % (0-2); Eosinophils Absolute Auto 0 /uL (0-450); Hematocrit 28.6 % (41-53); Hemoglobin 8.9 g/dL (13.5-17.5); Lymphocytes Absolute Auto 1100 /uL (1100-4500); Lymphocytes Percent Auto 8.2 % (25-40); Mean Corpuscular HGB Conc 31.1 % (30-36); Mean Corpuscular Hemoglobin 21.1 PG (26-34); Mean Corpuscular Volume 68.1 fL (80-100); Monocytes Absolute Auto 1200 /uL (0-900); Monocytes Percent Auto 8.9 % (3-14); Neutrophils Absolute Auto 11100 /uL (1500-7000); Neutrophils Percent Auto 82.7 % (50-75); Platelet Count 192 X10^3/uL (150-400); Red Cell Distribution Width 19.9 % (11.6-14.8); White Blood Cell Count 13.4 X10^3/uL (4.5-11.0)
[2019-05-12 05:20] LABS: Add Manual Diff / Slide Review SLIDE REVIEW
[2019-05-12] MEDS: DEXTROSE 5%-0.9% NS 1,000 ML 100 ML IV ×2 (05:20→14:53)
[2019-05-12 05:23] LABS: BUN Creatinine Ratio 18.9 (6-22); Blood Urea Nitrogen 17 mg/dL (9-20); Calcium 8.6 mg/dL (8.4-10.2); Carbon Dioxide 29 mmol/L (22-32); Chloride 105 mmol/L (98-107); Estimated Glomerular Filt Rate > 60.0 mL/min (>60); Glucose 153 mg/dL (80-110); HEMOLYSIS < 15 (0-50); Magnesium 1.9 mg/dL (1.6-2.3); Phosphorous 2.5 mg/dL (2.3-3.7); Sodium 141 mmol/L (137-145)
[2019-05-12 07:05] LABS: Anisocytosis 2+; Hypochromasia 2+; Microcytosis 1+
[2019-05-12] MEDS: AMOXICILLIN 250 MG CAPSULE 1000 MG PO ×2 (08:46→21:38)
[2019-05-12] MEDS: PANTOPRAZOLE 40 MG PACKET PO ×2 (08:47→21:39)
[2019-05-12] MEDS: CLARITHROMYCIN 500 MG TABLET PO ×2 (08:47→21:39)
[2019-05-12] MEDS: metroNIDAZOLE 500 MG TABLET PO ×2 (08:47→21:38)
--- NOTE | 2019-05-12 09:40 | PT.IIE ---
Current Diagnoses Peptic ulcer, site unspecified, unspecified as acute or chronic, without hemorrhage or perforation (05/10/19) Surgery Performed Operation Date: 05/10/19 01:55 Actual Procedures p Exploratory Laparotomy GEN, Repair Peptic Ulcer(Not Applicable) - Minh Thomas MD Surgical History (Last Reviewed 05/10/19 @ 01:52 by Minh Thomas MD) No pertinent past surgical history (Acute) Medical History (Last Reviewed 05/10/19 @ 01:52 by Minh Thomas MD) Atrial fibrillation (Acute) CHF (congestive heart failure) (Acute) Crohns disease (Acute) Physical Therapy Inpatient Evaluation/Re-Eval M1 PT/OT-IP Prior Functional Status Start: 05/12/19 10:40 Freq: NEEDED Status: Active Protocol: Document 05/12/19 09:40 AB (Rec: 05/12/19 10:54 AB [id number]) Medical Review Prior Functional Status Medical History Reviewed Yes Communication able to make needs known; able to answer questions but does not make much eye contact and seems lethargic. Mobility and Gait pt stated that he is independent with all mobilities and ambulation without AD Social History Household Members none Living Arrangements House Number of Floors (Floors) One Floor Number of Stairs To Enter/Railing? 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 pt stated that he lives in a cottage in the same property as his family; sister and brother lives close but currently in [place] for a vacation M2 PT-IP Current Condition Start: 05/12/19 10:40 Freq: NEEDED Status: Active Protocol: Document 05/12/19 09:40 AB (Rec: 05/12/19 10:54 AB [id number]) Physical Therapy Current Condition Current Condition Evaluation Date 05/12/19 Treatment Diagnosis perforated abdominal viscus s/ p ex-lap; difficulty in walking Onset Date 05/10/19 Precautions Abdominal Surgery Precautions Log Roll,Lifting Restrictions, Gait Belt above Incisional Area M3 PT-IP Subjective Start: 05/12/19 10:40 Freq: NEEDED Status: Active Protocol: Document 05/12/19 09:40 AB (Rec: 05/12/19 10:54 AB [id number]) Subjective Physical Therapy Visit Type Type Initial Evaluation Visit Start Time 09:40 Visit Stop Time 10:35 Total Visit Minutes 55 Number of LUGGER Visits 0 Physical Therapy Visit Comments Patient Comments pt agreed to get out of bed Therapy Pain Assessment Pain When Pain Assessed At Rest Pain Present Pain Present Pain Reported Location Abdomen Intensity 7 Scale Used Numeric (1 - 10) Pain Management Techniques Re-positioning,Timing of Activity with Medications M4 PT-IP Mobility and Gait Start: 05/12/19 10:40 Freq: NEEDED Status: Active Protocol: Document 05/12/19 09:40 AB (Rec: 05/12/19 10:54 AB [id number]) PT-Bed Mobility Assessment Rolling Type of Rolling Log Rolling Level of Assist Maximal Assistance Supine to Sit Supine to Sit Maximum Assistance PT-Transfer Assessment Sit to and From Stand Sit to and from Stand Moderate Assistance,2 Person Assistance,Use of Upper Extremities Equipment Transfer Assistive Device Gait Belt,Front Wheeled Walker Orthotic/Prosthetic Devices or Brace: No Transfers Transfer Destination Chair Transfer Technique Stand Step Pivot Transfer Ability Level of Assist Moderate Assistance,2 Person Assistance,Use of Upper Extremities Comments Mobility Comments pt educated on abdominal precautions and log roll bed mobility. completed supine to sit max A and max cues. pt able to sit on EOB min A and with increase posterior trunk leaning. pt requires constant cues for safety. pt seems lethargic, does not make eye contact and requires max cues with all tasks. BP in sitting : 139/79 c/o dizziness and stated that it is chronic due to his CHF. pt completed sit to stand from EOB mod A x 2 and cues and was able to maintain standing mod x 1-2 using FWW for support while NAC assisted pt with hygiene care. pt completed stand step transfer using FWW for support mod A x 2 and max cues. requires assist with weight shifting and max cues for safety. pt required mod to max A for controlled descent to the chair. pt refused to do ambulation. positioned pt on chair. call light and table placed within reach. BP sitting on chair after transfer: 141/74 Gait Assessment Comments Gait Comments able to take steps during transfer using fWW mod A x 2. refused further ambulation. PT-Balance Assessment Sitting Balance and Reactions Static Sitting Balance Ability Good Dynamic Sitting Balance Ability Fair Standing Balance and Reactions Static Standing Balance Ability Poor Dynamic Standing Balance Ability Poor Device Used FWW M5 PT-IP Objective Assessments Start: 05/12/19 10:40 Freq: NEEDED Status: Active Protocol: Document 05/12/19 09:40 AB (Rec: 05/12/19 10:54 AB [id number]) Orientation Orientation/Cognition Level of Alertness Lethargic Orientation Name,Situation Safety Awareness Decreased Safety Awareness Memory Description Short Term Impaired Gross Range of Motion Lower Extremity ROM Assessment Within Functional Limits Strength Comments Strength Comments RLE: 4+/5 LLE: 4-/5 Sensation Assessment Sensation Gross Sensation WNL Muscle Tone Muscle Tone WNL Yes M6 PT-IP Treatment Start: 05/12/19 10:40 Freq: NEEDED Status: Active Protocol: Document 05/12/19 09:40 AB (Rec: 05/12/19 10:54 AB [id number]) Physical Therapy Treatment Education Education Provided Precautions,Safety M7 PT-IP Assessment and Plan Start: 05/12/19 10:40 Freq: NEEDED Status: Active Protocol: Document 05/12/19 09:40 AB (Rec: 05/12/19 10:54 AB [id number]) PT Summary Assessment and Plan Potential Rehabilitation Potential Good Status of Condition at Evaluation Evolving Summary Impairments Pain,ROM,Strength,Balance, Coordination,Sensation,Tone, Cognition,Bed Mobility, Transfers,Gait,Activity Tolerance Assessment Summary pt requiring mod A x 2 for mobility and has decrease activity tolerance affecting mobility level and safety. pt will require SNF rehab to improve strength and independence. Goals Bed Mobility Goal Standby Assistance Transfer Goal Standby Assistance,Front Wheeled Walker Gait Goal Standby Assistance,Front Wheel Walker Gait Distance 150 Other Goals up/down 1 step CGA Days to Meet Goals 10 Frequency of Treatment Frequency Of Treatment Once a Day Treatment Plan Physical Therapy Treatment Plan Bed Mobility Training,Transfer Training,Gait Training, Therapeutic Exercise,Balance Retraining,Post Op Education, Discharge Planning,Hot or Cold Pack,Neuromuscular Re-ed, Coordination Retraining,Manual Therapy Other Recommendations and Next Treatment ambulation Focus Recommendations To Nursing Amount of Assist Needed 2 Person Assist Discharge Recommendations PT Discharge Recommendations SNF Rehab Equipment Needed for Home Before FWW: if going home and Discharge depending on progress
--- NOTE | 2019-05-12 10:22 | PM.PN.1 ---
Subjective Subjective Date Patient Seen: 05/12/19 Time Patient Seen: 10:22 Interval history: No acute events overnight. NGT in place with minimal output. Pt has been hesitant to get out of bed or ambulate per his nurse. PT consult needed. Pt c/o pain from NGT and upper abdomen. Pain controlled with pain med, but still limits mobility. Exam Vital Signs (past 8 hours): - 05/12/19 04:48 05/12/19 07:38 Temperature 100.3 F H 99.4 F Pulse Rate 96 H 89 Respiratory Rate 25 H 16 Blood Pressure 138/74 130/65 Pulse Oximetry 94 96 Oxygen Delivery Method Room Air Oxygen Flow Rate 1 Narrative Exam Narrative: alert, oriented, comfortable antalgic voice c/w NGT discomfort normal respirations, breathing comfortably on room air NSR Abd soft, mildly distended, appropriate TTP for post op incison c/d/i with ashley in place no scrotal edema no LE edema skin c/d/i Objective Labs Result Diagrams: 05/12/19 04:42 05/12/19 04:42 Labs: Laboratory Results - last 24 hr 05/12/19 05/12/19 04:42 04:42 WBC 13.4 H RBC 4.20 L Hgb 8.9 L Hct 28.6 L MCV 68.1 L MCH 21.1 L MCHC 31.1 RDW 19.9 H Plt Count 192 Neut % (Auto) 82.7 H Lymph % (Auto) 8.2 L [place] % (Auto) 8.9 Eos % (Auto) 0.0 L Baso % (Auto) 0.2 Neut # (Auto) 22264 H Lymph # (Auto) 1100 [place] # (Auto) 1200 H Eos # (Auto) 0 Baso # (Auto) 0 RBC Morphology See below Hypochromasia 2+ H Anisocytosis 2+ H Microcytosis 1+ H Sodium 141 Potassium 4.0 Chloride 105 Carbon Dioxide 29 BUN 17 Creatinine 0.90 Estimated GFR > 60.0 BUN/Creatinine Ratio 18.9 Glucose 153 H Calcium 8.6 Phosphorus 2.5 D Magnesium 1.9 Assessment & Plan Assessment & Plan narrative: 74 yo man POD#2 s/p Ex lap and Scott patch for perforated peptic ulcer. NGT is still in. Pt not ambulating well. WBC coming down slowly. Pt is on H pylori treatment protocol empirically. H pylori specimen pending. Pain controlled with PRN pain med. Plan: NGT to stay in for now; Dr. Thomas to see before removal Continue H pylori protocol PT consulted to help with mobility Will discuss restarting home meds with primary surgeon Time Spent With Patient Time with patient: Greater than 35 minutes Quality VTE Deep Vein Thrombosis/Pulmonary Embolism Present on Admission: No
--- NOTE | 2019-05-12 11:04 | PC.NURSE ---
Addendum entered by Jessie Lacy R.N. 05/12/19 14:57: Dr Thomas into see Pt, pulled NG tube in hopes of improving comfort, and Pt agreeable to ambulating with staff to help gas pain. PT worked with Pt and 2 PA, Pt continues with hiccups, gave PRN Dilaudid per order. Pt able to swallow pills with h20. Original Note: AM shift Pt is drowsy this morning, able to answer questions approp. but falling asleep during assessment/mid sentance. Pt reports pain is 8/10, but falls asleep while talking and unable to participate in ADLs or mobility. Becomes quite anxious about anticipated pain. Will make reduction to pain control to allow for more involvement in PT and I.S today. Pt updated and educated about this plan, agreeable. Midline incision KRISTEL, edges well approximated. Increased hiccups while awake, contributing to pain. Update given to friend Joseph Schneider, Pt is agreeable to this updating, as his family is In [place] traveling currently.
[2019-05-12] MEDS: diazePAM 5 MG TABLET 10 MG PO (12:45)
[2019-05-12] MEDS: ACETAMINOPHEN 325 MG TABLET 650 MG PO ×2 (14:37→21:38)
[2019-05-12] MEDS: OXYCODONE IR 5 MG TABLET PO ×2 (14:38→19:49)
--- NOTE | 2019-05-12 17:47 | PC.NURSE ---
Addendum entered by Demi Garcia R.N. 05/12/19 22:32: 2100 - Pt able to take po meds without difficulty. Continues to deny nausea. Call light in reach. Bed alarm on. Monitor. Addendum entered by Demi Garcia R.N. 05/12/19 20:38: 2000 - Pt awakened, with hiccups. Holding stomach. Denies nausea, however abd is distended and BT are very hypoactive. Removed clear liquid dinner, encouraged pt to use ice chips to slow po intake. Pt care with gown and linen change. Void per urinal. Percolone given for pain as ordered. Dr. Layton at bedside. Review level of activity today. Discussed valium use for hiccups. Also reviewed biaxin and digoxin, however after consulting with pharmacy, Dr. Thomas had previously address these orders. Call light in reach. Monitor. Original Note: 1700 - Pt drowsy. Take sips of clear liquid dinner tray. Pt report feeling abd cramping. Encourage pt to slow intake. Removed some of tray items. 93% on RA, Encouraged IS use. 10 breaths at 750. Reinforced need for activity. Pt declines to get up to a chair. Asked pt if he would like blinds open, pt states, No, I am getting ready to get tucked in for the night. Encouraged pt to stand at bedside, pt agreeable to think about doing activity later in the evening. Call light in reach.
[2019-05-13] VITALS (10 sets, daily range): BP systolic 126–147; BP diastolic 64–79; PULSE 83–100; RESP 15–20; TEMP 36.6–37.4; O2SAT 91–97
[2019-05-13] MEDS: OXYCODONE IR 5 MG TABLET PO ×3 (00:52→08:33)
[2019-05-13] MEDS: diazePAM 5 MG TABLET 10 MG PO (00:52)
[2019-05-13] MEDS: DEXTROSE 5%-0.9% NS 1,000 ML 100 ML IV ×2 (00:53→20:45)
[2019-05-13 05:22] LABS: Add Manual Diff / Slide Review NO; Basophils Absolute Auto 100 /uL (0-100); Basophils Percent Auto 0.6 % (0-2); Eosinophils Absolute Auto 200 /uL (0-450); Eosinophils Percent Auto 1.4 % (2-4); Hematocrit 26.7 % (41-53); Hemoglobin 8.4 g/dL (13.5-17.5); Lymphocytes Absolute Auto 1500 /uL (1100-4500); Lymphocytes Percent Auto 13.4 % (25-40); Mean Corpuscular HGB Conc 31.3 % (30-36); Mean Corpuscular Hemoglobin 21.7 PG (26-34); Mean Corpuscular Volume 69.2 fL (80-100); Monocytes Absolute Auto 1300 /uL (0-900); Monocytes Percent Auto 11.1 % (3-14); Neutrophils Absolute Auto 8300 /uL (1500-7000); Neutrophils Percent Auto 73.5 % (50-75); Platelet Count 187 X10^3/uL (150-400); Red Blood Cell Count 3.86 X10^6/uL (4.5-5.9); Red Cell Distribution Width 19.8 % (11.6-14.8); White Blood Cell Count 11.3 X10^3/uL (4.5-11.0)
[2019-05-13 05:34] LABS: BUN Creatinine Ratio 16.7 (6-22); Blood Urea Nitrogen 15 mg/dL (9-20); Calcium 8.4 mg/dL (8.4-10.2); Carbon Dioxide 30 mmol/L (22-32); Chloride 106 mmol/L (98-107); Estimated Glomerular Filt Rate > 60.0 mL/min (>60); Glucose 141 mg/dL (80-110); HEMOLYSIS < 15 (0-50); Magnesium 1.8 mg/dL (1.6-2.3); Phosphorous 2.9 mg/dL (2.3-3.7); Potassium 4.1 mmol/L (3.4-5.1); Sodium 141 mmol/L (137-145)
[2019-05-13] MEDS: ACETAMINOPHEN 325 MG TABLET 650 MG PO (05:57)
[2019-05-13 06:53] LABS: Polychromasia 1+
[2019-05-13 06:54] LABS: Anisocytosis 1+; Basophilic Stippling 1+; Microcytosis 1+
--- NOTE | 2019-05-13 08:14 | PC.NURSE ---
Addendum entered by Randa Lagunas R.N. 05/13/19 10:18: pt ambulated in hallway x 1 - agreeable to plan of 3 x at least this shift- sitting in chair at present, preparing to transfer to floor care- Original Note: pt quite anxious and rambling on this am- he did finally state that he wished he could reach his niece or nephew. He had given this RN this info and phone number at time of admission- he did not recall this . This RN dialed nephew DENA and given update of pt's status prior to transferring phone call into pt room
[2019-05-13] MEDS: FUROSEMIDE 40 MG TABLET PO (08:33)
[2019-05-13] MEDS: hydroCHLOROthiazide 25 MG TABLET PO (08:33)
[2019-05-13] MEDS: PANTOPRAZOLE 40 MG PACKET PO (08:34)
[2019-05-13] MEDS: DIGOXIN 0.125 MG TABLET 0.0625 MG PO (08:35)
[2019-05-13] MEDS: CLARITHROMYCIN 500 MG TABLET PO ×2 (08:36→22:08)
[2019-05-13] MEDS: AMOXICILLIN 250 MG CAPSULE 1000 MG PO ×2 (08:36→22:08)
[2019-05-13] MEDS: metroNIDAZOLE 500 MG TABLET PO (08:37)
--- NOTE | 2019-05-13 11:17 | PC.NURSE ---
Patient moved from ICU bed to room 217, oriented to room and call light. VSS. States he has discomfort in his abdomen from the movement. 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 Given warm blankets and resting to have room dark to nap for a little while. Voided without difficulty, and urinal placed within in reach. IVF infusing as ordered. Bed alarm activated for safety, patient agrees to call for assistance. Call light within reach. COntinue to monitor, encourage increased activity and increased deep breathing/IS use.
--- NOTE | 2019-05-13 12:15 | PT.IPTN ---
Current Diagnoses Peptic ulcer, site unspecified, unspecified as acute or chronic, without hemorrhage or perforation (05/10/19) Surgery Performed Operation Date: 05/10/19 01:55 Actual Procedures p Exploratory Laparotomy GEN, Repair Peptic Ulcer(Not Applicable) - Minh Thomas MD Physical Therapy Treatment Note M2 PT-IP Current Condition Start: 05/12/19 10:40 Freq: NEEDED Status: Active Protocol: Document 05/12/19 09:40 AB (Rec: 05/12/19 10:54 AB [id number]) Physical Therapy Current Condition Current Condition Evaluation Date 05/12/19 Treatment Diagnosis perforated abdominal viscus s/ p ex-lap; difficulty in walking Onset Date 05/10/19 Precautions Abdominal Surgery Precautions Log Roll,Lifting Restrictions, Gait Belt above Incisional Area M3 PT-IP Subjective Start: 05/12/19 10:40 Freq: NEEDED Status: Active Protocol: Document 05/13/19 12:15 GGD (Rec: 05/13/19 12:57 GGD [id number]) Subjective Physical Therapy Visit Type Type Treatment Note Visit Start Time 11:50 Visit Stop Time 12:16 Total Visit Minutes 26 Number of PERCUSSION INSTRUMENT TUNER Visits 1 Physical Therapy Visit Comments Patient Comments Pt willing to walk. Therapy Pain Assessment Pain When Pain Assessed At Rest Pain Present Pain Present Pain Reported M4 PT-IP Mobility and Gait Start: 05/12/19 10:40 Freq: NEEDED Status: Active Protocol: Document 05/13/19 12:15 GGD (Rec: 05/13/19 12:57 GGD [id number]) PT-Bed Mobility Assessment Rolling Type of Rolling Log Rolling Level of Assist Contact Guard Assistance Supine to Sit Supine to Sit Minimal Assistance Sit to Supine Sit to Supine Minimal Assistance Scooting Scooting to Edge of Bed Contact Guard Assistance PT-Transfer Assessment Sit to and From Stand Sit to and from Stand Contact Guard Assistance,1 Person Assistance,Use of Upper Extremities Equipment Transfer Assistive Device Gait Belt,Front Wheeled Walker Orthotic/Prosthetic Devices or Brace: No Transfers Transfer Destination Bed Transfer Ability Level of Assist Minimal Assistance,1 Person Assistance,Use of Upper Extremities Gait Assessment Gait Gait Assistance Required: Contact Guard Assist Distance (Feet) 100 Assistive Devices Assistive Device Gait Belt,Front Wheeled Walker Gait Deviations General Gait Pattern Decreased Stride Length, Decreased Feet Clearance, Flexed Trunk,Step-to Gait Factors Limiting Gait Function Factors Limiting Gait Function Decreased Activity Tolerance, Limited Range of Motion,Pain, Poor Balance M5 PT-IP Objective Assessments Start: 05/12/19 10:40 Freq: NEEDED Status: Active Protocol: Document 05/12/19 09:40 AB (Rec: 05/12/19 10:54 AB [id number]) Orientation Orientation/Cognition Level of Alertness Lethargic Orientation Name,Situation Safety Awareness Decreased Safety Awareness Memory Description Short Term Impaired Gross Range of Motion Lower Extremity ROM Assessment Within Functional Limits Strength Comments Strength Comments RLE: 4+/5 LLE: 4-/5 Sensation Assessment Sensation Gross Sensation WNL Muscle Tone Muscle Tone WNL Yes M6 PT-IP Treatment Start: 05/12/19 10:40 Freq: NEEDED Status: Active Protocol: Document 05/12/19 09:40 AB (Rec: 05/12/19 10:54 AB [id number]) Physical Therapy Treatment Education Education Provided Precautions,Safety M7 PT-IP Assessment and Plan Start: 05/12/19 10:40 Freq: NEEDED Status: Active Protocol: Document 05/13/19 12:15 GGD (Rec: 05/13/19 12:57 GGD [id number]) PT Summary Assessment and Plan Summary Assessment Summary Pt improving with mobility. He as a slow gait pace with small steps. Pt needed cues for posture during gait. He would benefit from SNF to improve functional mobility and strength. Frequency of Treatment Frequency Of Treatment Once a Day Treatment Plan Physical Therapy Treatment Plan Bed Mobility Training,Transfer Training,Gait Training, Therapeutic Exercise,Balance Retraining,Post Op Education, Discharge Planning,Hot or Cold Pack,Neuromuscular Re-ed, Coordination Retraining,Manual Therapy Recommendations To Nursing Amount of Assist Needed 1 Person Assist Discharge Recommendations PT Discharge Recommendations SNF Rehab
--- NOTE | 2019-05-13 14:59 | PC.NURSE ---
Patient completed third walk for the day, stating it does help his abdominal discomfort a little when his is up walking. Able to use the urinal independently in bed. Maintained NPO, clarified with Dr. Ryan this shift and patient is not to have po meds or no sips/chips at this time. IV fluids continued as ordered. Patient resting quietly in bed at this time. Call light and urinal within reach.
--- NOTE | 2019-05-13 15:21 | CM.DPNOTE ---
Addendum entered by JASKARAN Villalobos 05/13/19 15:37: CB from Yolanda at [facility]- they have male beds available, or January will be in touch Wednesday to review referral again after NG tube out and diet progressed. Original Note: DCP Cont: Reviewed chart. PT recommending SNF d/t pt's slow progression POD#2 s/p abd surgery for perforated peptic ulcer. Met w/pt to review DCP options. Pt's family return Wednesday or Wednesday from their [place] trip. This MACHINE CANDLE MOLDER asks if pt's family could stay w/him in his cottage for assist? Pt thinks they can. Then discussed SNF options and shared that therapy team recommending this. Pt agrees this might be the safest option and agreeable to [facility] if Medicare will cover. Pt admits he is a little foggy d/t meds but thanks this MACHINE CANDLE MOLDER for DC planning efforts. Placed call to Yolanda at [facility], discussed referral and faxed SNF packet to [facility] per request, acceptance pending review. Pt is still NPO, may be days still until DC. P:DC likely to SNF unless pt makes significant functional improvement, then possibly home w/family and HH (?) PASRR completed in anticipation for SNF DC. JASKARAN Villalobos
--- NOTE | 2019-05-13 16:10 | PM.PNPO.1 ---
Subjective Subjective Date Patient Seen: 05/13/19 Time Patient Seen: 08:50 Interval history: The patient is a gentleman who had an open omental patch for a perforated ulcer. He had a temperature last night. He states he has some abdominal pain but it is improving. Exam Vital Signs (past 8 hours): - 05/13/19 09:14 05/13/19 09:32 05/13/19 11:17 Temperature 98.5 F 97.8 F Pulse Rate 89 Respiratory Rate 17 Blood Pressure 142/79 H Pulse Oximetry 96 94 05/13/19 15:40 Temperature 99.4 F Pulse Rate 95 H Respiratory Rate 15 Blood Pressure 145/76 H Pulse Oximetry 92 Oxygen Delivery Method Room Air Oxygen Flow Rate 0 Narrative Exam Narrative: Lying rather still. Not breathing deeply at all. [place] are intact in his wound. No cellulitis. Abdomen is a bit distended. It is soft. No guarding. Objective Labs Result Diagrams: 05/13/19 04:35 05/13/19 04:35 Labs: Laboratory Results - last 24 hr 05/13/19 05/13/19 04:35 04:35 WBC 11.3 H RBC 3.86 L Hgb 8.4 L Hct 26.7 L MCV 69.2 L MCH 21.7 L MCHC 31.3 RDW 19.8 H Plt Count 187 Neut % (Auto) 73.5 Lymph % (Auto) 13.4 L [place] % (Auto) 11.1 Eos % (Auto) 1.4 L Baso % (Auto) 0.6 Neut # (Auto) 8300 H Lymph # (Auto) 1500 [place] # (Auto) 1300 H Eos # (Auto) 200 Baso # (Auto) 100 RBC Morphology See below Polychromasia 1+ H Basophilic Stippling 1+ H Anisocytosis 1+ H Microcytosis 1+ H Sodium 141 Potassium 4.1 Chloride 106 Carbon Dioxide 30 BUN 15 Creatinine 0.90 Estimated GFR > 60.0 BUN/Creatinine Ratio 16.7 Glucose 141 H Calcium 8.4 Phosphorus 2.9 Magnesium 1.8 Assessment & Plan Post-op Postoperative Procedures: Procedures Operation Date: 05/10/19 01:55 Actual Procedures Side Surgeon p Exploratory Laparotomy GEN, Repair Peptic Ulcer Not Applicable Minh Thomas MD Postoperative status narrative: Post omental patch for perforated ulcer Postoperative plan narrative: Talked to him about the importance of deep breathing and avoiding pneumonia. I suspect his temperature last night was related to his lungs. Were all work with him about breathing and mobilization and movement. Further temperature elevation will prompted a chest x-ray on it and labs. Quality VTE Deep Vein Thrombosis/Pulmonary Embolism Present on Admission: No
[2019-05-13] MEDS: HYDROMORPHONE 2 MG INJ 1 MG IV (17:56)
[2019-05-13] MEDS: PANTOPRAZOLE 40 MG VIAL IV (22:24)
[2019-05-13] MEDS: HYDROMORPHONE 1 MG INJ IV (22:47)
--- NOTE | 2019-05-13 23:46 | PC.NURSE ---
Strict NPO. pain is 2/10, but when he has hiccups his pain goes up to 8/10. pain controlled with IV dilaudid. Notified Dr. Ryan regarding his HS meds, VTO to give amoxicillin and biaxin, and protonix 40mg IVP. midline KRISTEL, CDI. passed a little gas. btx4 hypo. call light in reach. bed alarm active.
[2019-05-14] VITALS (9 sets, daily range): BP systolic 113–134; BP diastolic 63–80; PULSE 80–93; RESP 16–19; TEMP 36.6–37.1; O2SAT 92–95
[2019-05-14] MEDS: HYDROMORPHONE 1 MG INJ IV ×7 (01:53→23:39)
--- NOTE | 2019-05-14 04:41 | PC.NURSE ---
Paged Dr. Ryan via pager that pt. C/O nausea, the order noted for Zofran was PACU med. order. Awaiting call back
[2019-05-14] MEDS: ONDANSETRON 4 MG/2 ML INJ IV ×5 (05:32→23:36)
[2019-05-14] MEDS: DEXTROSE 5%-0.9% NS 1,000 ML 100 ML IV ×2 (06:56→16:46)
[2019-05-14] MEDS: PANTOPRAZOLE 40 MG VIAL IV ×2 (09:29→20:26)
--- NOTE | 2019-05-14 11:46 | PT.IPTN ---
Current Diagnoses Peptic ulcer, site unspecified, unspecified as acute or chronic, without hemorrhage or perforation (05/10/19) Surgery Performed Operation Date: 05/10/19 01:55 Actual Procedures p Exploratory Laparotomy GEN, Repair Peptic Ulcer(Not Applicable) - Minh Thomas MD Physical Therapy Treatment Note M2 PT-IP Current Condition Start: 05/12/19 10:40 Freq: NEEDED Status: Active Protocol: Document 05/12/19 09:40 AB (Rec: 05/12/19 10:54 AB [id number]) Physical Therapy Current Condition Current Condition Evaluation Date 05/12/19 Treatment Diagnosis perforated abdominal viscus s/ p ex-lap; difficulty in walking Onset Date 05/10/19 Precautions Abdominal Surgery Precautions Log Roll,Lifting Restrictions, Gait Belt above Incisional Area M3 PT-IP Subjective Start: 05/12/19 10:40 Freq: NEEDED Status: Active Protocol: Document 05/14/19 11:17 CLB (Rec: 05/14/19 13:06 CLB [id number]) Subjective Physical Therapy Visit Type Type Treatment Note Visit Start Time 11:17 Visit Stop Time 11:46 Total Visit Minutes 29 Number of WELDING EQUIPMENT REPAIRER SUPERVISOR Visits 2 Physical Therapy Visit Comments Patient Comments Pt willing to walk. Therapy Pain Assessment Pain When Pain Assessed After Treatment Pain Present Pain Present Pain Reported Location Abdomen Intensity 9 Scale Used Numeric (1 - 10) Pain Management Techniques Re-positioning,Timing of Activity with Medications M4 PT-IP Mobility and Gait Start: 05/12/19 10:40 Freq: NEEDED Status: Active Protocol: Document 05/14/19 11:17 CLB (Rec: 05/14/19 13:06 CLB [id number]) PT-Bed Mobility Assessment Sit to Supine Sit to Supine Minimal Assistance PT-Transfer Assessment Sit to and From Stand Sit to and from Stand Contact Guard Assistance,1 Person Assistance,Use of Upper Extremities Equipment Transfer Assistive Device Gait Belt,Front Wheeled Walker Orthotic/Prosthetic Devices or Brace: No Transfers Transfer Destination Bed Transfer Ability Level of Assist Minimal Assistance,1 Person Assistance,Use of Upper Extremities Gait Assessment Gait Gait Assistance Required: Contact Guard Assist Distance (Feet) 100 Able to Maintain Weight Bearing Status Yes During Gait Assistive Devices Assistive Device Gait Belt,Front Wheeled Walker Gait Deviations General Gait Pattern Decreased Stride Length, Decreased Feet Clearance, Flexed Trunk,Step-to Gait Factors Limiting Gait Function Factors Limiting Gait Function Decreased Activity Tolerance, Limited Range of Motion,Pain, Poor Balance Comments Gait Comments Pt ambulated ~100ft taking increased time and several standing rest breaks. Pt putting force through arms on FWW and needed cues to stand inside walker and not so far behind the walker. M5 PT-IP Objective Assessments Start: 05/12/19 10:40 Freq: NEEDED Status: Active Protocol: Document 05/12/19 09:40 AB (Rec: 05/12/19 10:54 AB [id number]) Orientation Orientation/Cognition Level of Alertness Lethargic Orientation Name,Situation Safety Awareness Decreased Safety Awareness Memory Description Short Term Impaired Gross Range of Motion Lower Extremity ROM Assessment Within Functional Limits Strength Comments Strength Comments RLE: 4+/5 LLE: 4-/5 Sensation Assessment Sensation Gross Sensation WNL Muscle Tone Muscle Tone WNL Yes M6 PT-IP Treatment Start: 05/12/19 10:40 Freq: NEEDED Status: Active Protocol: Document 05/12/19 09:40 AB (Rec: 05/12/19 10:54 AB [id number]) Physical Therapy Treatment Education Education Provided Precautions,Safety M7 PT-IP Assessment and Plan Start: 05/12/19 10:40 Freq: NEEDED Status: Active Protocol: Document 05/14/19 11:17 CLB (Rec: 05/14/19 13:06 CLB [id number]) PT Summary Assessment and Plan Summary Impairments Pain,ROM,Strength,Balance, Coordination,Sensation,Tone, Cognition,Bed Mobility, Transfers,Gait,Activity Tolerance Assessment Summary Pt continues with slow gait and required cues for posture. Pt with increased pain 9/10 upon returning from walk. RN notified at once. He would benefit from SNF to improve functional mobility and strength. Goals Bed Mobility Goal Standby Assistance Transfer Goal Standby Assistance,Front Wheeled Walker Gait Goal Standby Assistance,Front Wheel Walker Gait Distance 150 Other Goals up/down 1 step CGA Days to Meet Goals 10 Frequency of Treatment Frequency Of Treatment Once a Day Treatment Plan Physical Therapy Treatment Plan Bed Mobility Training,Transfer Training,Gait Training, Therapeutic Exercise,Balance Retraining,Post Op Education, Discharge Planning,Hot or Cold Pack,Neuromuscular Re-ed, Coordination Retraining,Manual Therapy Recommendations To Nursing Amount of Assist Needed 1 Person Assist Discharge Recommendations PT Discharge Recommendations SNF Rehab Equipment Needed for Home Before FWW: if going home and Discharge depending on progress
--- NOTE | 2019-05-14 11:56 | PC.NURSE ---
Addendum entered by Bernice Jordan R.N. 05/14/19 15:28: Patient received some PO meds after adjusting diet order per physician. Patient back to bed, c/o pain, dilaudid and zofran given. Original Note: Patient up to restroom earlier and sat in chair for most of the morning, taken off oxygen, stating in the low 90's. Patients lungs are clear, incision is clean, dry with ashley intact, free of redness, warmth or odor. Tele is in place. Patient has intermittent bouts of hiccups. Denied pain before walking in the halls but after walking patient reported pain at a 9, in abdomen. Also c/o nausea. PRN medications given at this time. Patient back to bed, request that blinds be drawn and SCD's remain off. Call light in reach.
[2019-05-14] MEDS: AMOXICILLIN 250 MG CAPSULE 1000 MG PO ×2 (14:47→20:25)
--- NOTE | 2019-05-14 14:49 | PM.PNPO.1 ---
Subjective Subjective Date Patient Seen: 05/14/19 Time Patient Seen: 14:49 Interval history: Patient post exploration for a perforated ulcer. Feels a little better though still uncomfortable. Has been walking more. He has been trying to breathe deeper. Still nauseated. He developed hiccoughs but they are controlled with Thorazine. Exam Vital Signs (past 8 hours): - 05/14/19 08:00 05/14/19 11:29 Temperature 98.7 F 98.3 F Pulse Rate 87 93 H Respiratory Rate 17 16 Blood Pressure 128/69 113/66 Pulse Oximetry 92 95 Oxygen Delivery Method Nasal Cannula Oxygen Flow Rate 0 Narrative Exam Narrative: Temp back down. Lungs better effort. Clear in anterior and lateral. Still not much air movement in the bases. His heart irregularly irregular. Abdomen remain full distended but the incision is intact without cellulitis. Objective Labs Result Diagrams: 05/13/19 04:35 05/13/19 04:35 Assessment & Plan Post-op Postoperative Procedures: Procedures Operation Date: 05/10/19 01:55 Actual Procedures Side Surgeon p Exploratory Laparotomy GEN, Repair Peptic Ulcer Not Applicable Minh Thomas MD Postoperative status narrative: Slowly improving. Unclear if his nausea is due to his or medication or his overall clinical picture after his perforation. Postoperative plan narrative: Will keep him NPO today. I have placed him on his oral medication however. Will treat his ulcer with antibiotics for H pylori. He has chronic permanent AFib. Continue his cardiac meds. Patient has a history of congestive heart failure of unknown type. Continue his digoxin. Quality VTE Deep Vein Thrombosis/Pulmonary Embolism Present on Admission: No
[2019-05-14] MEDS: FUROSEMIDE 40 MG TABLET PO (14:50)
[2019-05-14] MEDS: CLARITHROMYCIN 500 MG TABLET PO ×2 (14:50→20:26)
[2019-05-14] MEDS: metroNIDAZOLE 500 MG TABLET PO ×2 (14:52→20:26)
[2019-05-14] MEDS: DIGOXIN 0.125 MG TABLET 0.0625 MG PO (15:15)
[2019-05-14] MEDS: ACETAMINOPHEN 325 MG TABLET 650 MG PO (18:11)
[2019-05-15] VITALS (8 sets, daily range): BP systolic 109–155; BP diastolic 63–82; PULSE 81–105; RESP 18–20; TEMP 36.7–37.4; O2SAT 90–97
[2019-05-15] MEDS: diazePAM 5 MG TABLET 10 MG PO ×2 (00:51→22:20)
--- NOTE | 2019-05-15 01:28 | PC.NURSE ---
Addendum entered by Radha Miller R.N. 05/15/19 05:13: Patient again complains of pain exacerbated by hiccoughs so medicated with Dilaudid. Asking for antiemetic but agreeable to trying Thorazine for hiccoughs which could also help his nausea and reduce pain if hiccoughs are controlled. Original Note: Patient is alert and oriented. Breath sounds with inspiratory crackles in left LL; RA sat is 93%. States he does feel SOB with exertion. HR irregular; hx of afib and on telemetry was afib CVR/a-flutter. Earlier nausea resolved now after having received Zofran. BT present; states he is passing micro flatus. Abdomen is distended, soft, tender. Denies dysuria, frequency or urgency. Using urinal and urine is clear, dark, katherine. Abdominal incision is stapled, KRISTEL and well approximated without drainage. Wearing bilateral SCD's. Pain earlier was identified as being 8/10 and was medicated with Dilaudid and now states pain is 2/10. Has been having persistent hiccoughs so agreeable to trying 5mg dose of Valium to see if that will help. Reports fall within past 3 months and fall risk score is high so bed alarm is activated.
[2019-05-15] MEDS: HYDROMORPHONE 1 MG INJ IV ×4 (02:57→14:47)
[2019-05-15] MEDS: CLARITHROMYCIN 500 MG TABLET PO ×2 (09:57→20:45)
[2019-05-15] MEDS: AMOXICILLIN 250 MG CAPSULE 1000 MG PO ×2 (09:57→20:45)
[2019-05-15] MEDS: DIGOXIN 0.125 MG TABLET 0.0625 MG PO (09:57)
[2019-05-15] MEDS: hydroCHLOROthiazide 25 MG TABLET PO (09:59)
[2019-05-15] MEDS: PANTOPRAZOLE 40 MG VIAL IV ×2 (09:59→22:17)
[2019-05-15] MEDS: metroNIDAZOLE 500 MG TABLET PO ×2 (09:59→20:45)
[2019-05-15] MEDS: FUROSEMIDE 40 MG TABLET PO (09:59)
--- NOTE | 2019-05-15 12:04 | PM.PNPO.1 ---
Subjective Subjective Date Patient Seen: 05/15/19 Time Patient Seen: 12:05 Interval history: No acute interval events. Passing flatus less distended no further nausea no vomiting fever. Thorazine is controlling hiccups Exam Vital Signs (past 8 hours): - 05/15/19 04:39 05/15/19 05:51 05/15/19 08:33 Temperature 98.2 F 98.1 F Pulse Rate 95 H 92 H 81 Respiratory Rate 20 18 Blood Pressure 128/63 109/64 151/65 H Pulse Oximetry 90 L 97 94 05/15/19 09:57 Temperature Pulse Rate 94 H Respiratory Rate Blood Pressure Pulse Oximetry Oxygen Delivery Method Room Air Oxygen Flow Rate 0 Narrative Exam Narrative: General adult male alert oriented no acute distress Abdomen soft compressible incision clean dry intact Objective Labs Result Diagrams: 05/13/19 04:35 05/13/19 04:35 Assessment & Plan Post-op Postoperative Procedures: Procedures Operation Date: 05/10/19 01:55 Actual Procedures Side Surgeon p Exploratory Laparotomy GEN, Repair Peptic Ulcer Not Applicable Minh Thomas MD Postoperative day: 5 Postoperative status narrative: 74-year-old male postoperative day 5 status post open Scott patch repair of gastric ulcer. Has return of bowel function doing well. -Full liquid diet -continue empirical H pylori treatment as written -SCDs and Lovenox for VTE prophylaxis -physical therapy will likely require rehab following discharge Quality VTE Deep Vein Thrombosis/Pulmonary Embolism Present on Admission: No
[2019-05-15] MEDS: DEXTROSE 5%-0.9% NS 1,000 ML 100 ML IV (15:42)
--- NOTE | 2019-05-15 15:49 | PT.IPTN ---
Current Diagnoses Peptic ulcer, site unspecified, unspecified as acute or chronic, without hemorrhage or perforation (05/10/19) Surgery Performed Operation Date: 05/10/19 01:55 Actual Procedures p Exploratory Laparotomy GEN, Repair Peptic Ulcer(Not Applicable) - Minh Thomas MD Physical Therapy Treatment Note M2 PT-IP Current Condition Start: 05/12/19 10:40 Freq: NEEDED Status: Active Protocol: Document 05/12/19 09:40 AB (Rec: 05/12/19 10:54 AB [id number]) Physical Therapy Current Condition Current Condition Evaluation Date 05/12/19 Treatment Diagnosis perforated abdominal viscus s/ p ex-lap; difficulty in walking Onset Date 05/10/19 Precautions Abdominal Surgery Precautions Log Roll,Lifting Restrictions, Gait Belt above Incisional Area M3 PT-IP Subjective Start: 05/12/19 10:40 Freq: NEEDED Status: Active Protocol: Document 05/15/19 11:50 RS (Rec: 05/15/19 15:49 RS [id number]) Subjective Physical Therapy Visit Type Type Treatment Note Physical Therapy Visit Comments Patient Comments Pt just woke up from nap, no pain, wants to walk. Therapy Pain Assessment Pain When Pain Assessed At Rest Pain Present Pain Present Denied Pain M4 PT-IP Mobility and Gait Start: 05/12/19 10:40 Freq: NEEDED Status: Active Protocol: Document 05/15/19 11:50 RS (Rec: 05/15/19 15:49 RS [id number]) PT-Bed Mobility Assessment Rolling Type of Rolling Log Rolling Level of Assist Contact Guard Assistance Supine to Sit Supine to Sit Minimal Assistance Sit to Supine Sit to Supine Minimal Assistance PT-Transfer Assessment Sit to and From Stand Sit to and from Stand Contact Guard Assistance,1 Person Assistance,Use of Upper Extremities Equipment Transfer Assistive Device Gait Belt,Front Wheeled Walker Orthotic/Prosthetic Devices or Brace: No Transfers Transfer Destination Bed,Chair Transfer Ability Level of Assist Contact Guard Assistance,1 Person Assistance Gait Assessment Gait Gait Assistance Required: Contact Guard Assist Distance (Feet) 100 Able to Maintain Weight Bearing Status Yes During Gait Assistive Devices Assistive Device Gait Belt,Front Wheeled Walker Factors Limiting Gait Function Factors Limiting Gait Function Decreased Activity Tolerance, Limited Range of Motion,Pain, Poor Balance M5 PT-IP Objective Assessments Start: 05/12/19 10:40 Freq: NEEDED Status: Active Protocol: Document 05/12/19 09:40 AB (Rec: 05/12/19 10:54 AB [id number]) Orientation Orientation/Cognition Level of Alertness Lethargic Orientation Name,Situation Safety Awareness Decreased Safety Awareness Memory Description Short Term Impaired Gross Range of Motion Lower Extremity ROM Assessment Within Functional Limits Strength Comments Strength Comments RLE: 4+/5 LLE: 4-/5 Sensation Assessment Sensation Gross Sensation WNL Muscle Tone Muscle Tone WNL Yes M6 PT-IP Treatment Start: 05/12/19 10:40 Freq: NEEDED Status: Active Protocol: Document 05/12/19 09:40 AB (Rec: 05/12/19 10:54 AB [id number]) Physical Therapy Treatment Education Education Provided Precautions,Safety M7 PT-IP Assessment and Plan Start: 05/12/19 10:40 Freq: NEEDED Status: Active Protocol: Document 05/15/19 11:50 RS (Rec: 05/15/19 15:49 RS [id number]) PT Summary Assessment and Plan Summary Assessment Summary Pt continues to mobilize slowly, reports it's due to trying to limit pain and because he's out of energy. Pt 's current gait speed is not conducive to safe mobility in any setting, continue to recommend SNF rehab. Frequency of Treatment Frequency Of Treatment Once a Day Treatment Plan Physical Therapy Treatment Plan Bed Mobility Training,Transfer Training,Gait Training, Therapeutic Exercise,Balance Retraining,Post Op Education, Discharge Planning,Hot or Cold Pack,Neuromuscular Re-ed, Coordination Retraining,Manual Therapy Recommendations To Nursing Amount of Assist Needed 1 Person Assist Discharge Recommendations PT Discharge Recommendations SNF Rehab
[2019-05-15] MEDS: ACETAMINOPHEN 325 MG TABLET 650 MG PO (18:38)
[2019-05-16] VITALS (7 sets, daily range): BP systolic 119–141; BP diastolic 63–74; PULSE 85–98; RESP 15–22; TEMP 36.4–37.8; O2SAT 93–97
[2019-05-16] MEDS: ACETAMINOPHEN 325 MG TABLET 650 MG PO ×5 (00:11→23:55)
--- NOTE | 2019-05-16 00:40 | PC.NURSE ---
Addendum entered by Radha Miller R.N. 05/16/19 06:16: Denies abdominal pain this morning but states back pain is 8/10 and dull ache; medicated with scheduled Tylenol and refused Oxycodone. Original Note: Patient is alert and oriented. Breath sounds CTA with RA sat of 94%. HR irregular; telemetry reading was afib CVR w/BBB. HR currently tachy at 105 and BP elevated at 155/82. Denies nausea. BT present but still states only passing small amounts of flatus. States abdominal pain is 4/10; medicated with scheduled Tylenol. Is refusing Oxycodone as he states it nauseates him. Having hiccoughs again so requested/medicated with Thorazine as that helped when he took it yesterday morning. Has urinary urgency but denies dysuria or frequency and is using urinal at bedside. Is able to turn himself. 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 Wearing bilateral SCD's. Reports 1 fall in past 3 months so fall score is high and bed alarm is activated; verbalizes understanding to call for assist but does not always do so.
[2019-05-16] MEDS: DIGOXIN 0.125 MG TABLET 0.0625 MG PO (09:46)
[2019-05-16] MEDS: hydroCHLOROthiazide 25 MG TABLET PO (09:47)
[2019-05-16] MEDS: FUROSEMIDE 40 MG TABLET PO (09:47)
[2019-05-16] MEDS: CLARITHROMYCIN 500 MG TABLET PO ×2 (09:48→22:14)
[2019-05-16] MEDS: metroNIDAZOLE 500 MG TABLET PO ×2 (09:48→22:14)
[2019-05-16] MEDS: AMOXICILLIN 250 MG CAPSULE 1000 MG PO ×2 (09:48→22:14)
--- NOTE | 2019-05-16 10:26 | PT.IPTN ---
Current Diagnoses Peptic ulcer, site unspecified, unspecified as acute or chronic, without hemorrhage or perforation (05/10/19) Surgery Performed Operation Date: 05/10/19 01:55 Actual Procedures p Exploratory Laparotomy GEN, Repair Peptic Ulcer(Not Applicable) - Minh Thomas MD Physical Therapy Treatment Note M2 PT-IP Current Condition Start: 05/12/19 10:40 Freq: NEEDED Status: Active Protocol: Document 05/12/19 09:40 AB (Rec: 05/12/19 10:54 AB [id number]) Physical Therapy Current Condition Current Condition Evaluation Date 05/12/19 Treatment Diagnosis perforated abdominal viscus s/ p ex-lap; difficulty in walking Onset Date 05/10/19 Precautions Abdominal Surgery Precautions Log Roll,Lifting Restrictions, Gait Belt above Incisional Area M3 PT-IP Subjective Start: 05/12/19 10:40 Freq: NEEDED Status: Active Protocol: Document 05/16/19 10:06 CLB (Rec: 05/16/19 12:55 CLB [id number]) Subjective Physical Therapy Visit Type Type Treatment Note Visit Start Time 10:06 Visit Stop Time 10:26 Total Visit Minutes 20 Number of OVEN BUILDER Visits 1 Physical Therapy Visit Comments Patient Comments Pt wanting to walk and sit in chair. Therapy Pain Assessment Pain When Pain Assessed After Treatment Pain Present Pain Present Pain Reported Location Abdomen Intensity 3 Scale Used Numeric (1 - 10) Pain Management Techniques Modification of Treatment,Re- positioning,Timing of Activity with Medications M4 PT-IP Mobility and Gait Start: 05/12/19 10:40 Freq: NEEDED Status: Active Protocol: Document 05/16/19 10:06 CLB (Rec: 05/16/19 12:55 CLB [id number]) PT-Bed Mobility Assessment Rolling Type of Rolling Log Rolling Level of Assist Minimal Assistance,1 Person Assistance Supine to Sit Supine to Sit Minimal Assistance Scooting Scooting to Edge of Bed Contact Guard Assistance PT-Transfer Assessment Sit to and From Stand Sit to and from Stand Contact Guard Assistance,1 Person Assistance,Use of Upper Extremities Equipment Transfer Assistive Device Gait Belt,Front Wheeled Walker Orthotic/Prosthetic Devices or Brace: No Transfers Transfer Destination Bed,Chair Transfer Ability Level of Assist Contact Guard Assistance,1 Person Assistance Gait Assessment Gait Gait Assistance Required: Contact Guard Assist Distance (Feet) 100 Able to Maintain Weight Bearing Status Yes During Gait Assistive Devices Assistive Device Gait Belt,Front Wheeled Walker Gait Deviations General Gait Pattern Decreased Stride Length, Decreased Feet Clearance, Flexed Trunk,Step-to Gait Factors Limiting Gait Function Factors Limiting Gait Function Decreased Activity Tolerance, Limited Range of Motion,Pain, Poor Balance Comments Gait Comments Pt improved with gait speet, with improved posture, foot clearance and stride length. M5 PT-IP Objective Assessments Start: 05/12/19 10:40 Freq: NEEDED Status: Active Protocol: Document 05/12/19 09:40 AB (Rec: 05/12/19 10:54 AB [id number]) Orientation Orientation/Cognition Level of Alertness Lethargic Orientation Name,Situation Safety Awareness Decreased Safety Awareness Memory Description Short Term Impaired Gross Range of Motion Lower Extremity ROM Assessment Within Functional Limits Strength Comments Strength Comments RLE: 4+/5 LLE: 4-/5 Sensation Assessment Sensation Gross Sensation WNL Muscle Tone Muscle Tone WNL Yes M6 PT-IP Treatment Start: 05/12/19 10:40 Freq: NEEDED Status: Active Protocol: Document 05/12/19 09:40 AB (Rec: 05/12/19 10:54 AB [id number]) Physical Therapy Treatment Education Education Provided Precautions,Safety M7 PT-IP Assessment and Plan Start: 05/12/19 10:40 Freq: NEEDED Status: Active Protocol: Document 05/16/19 10:06 CLB (Rec: 05/16/19 12:55 CLB [id number]) PT Summary Assessment and Plan Summary Impairments Pain,ROM,Strength,Balance, Coordination,Sensation,Tone, Cognition,Bed Mobility, Transfers,Gait,Activity Tolerance Assessment Summary Pt improved with gait quality and speed. Pt required cues for posture and staying inside walker. Pt continues to need assist with supine to sit with increase in pain with bed mobility. Pt would benefit from SNF rehab to increase activity tolerance and functional mobility. Goals Bed Mobility Goal Standby Assistance Transfer Goal Standby Assistance,Front Wheeled Walker Gait Goal Standby Assistance,Front Wheel Walker Gait Distance 150 Other Goals up/down 1 step CGA Days to Meet Goals 10 Frequency of Treatment Frequency Of Treatment Once a Day Treatment Plan Physical Therapy Treatment Plan Bed Mobility Training,Transfer Training,Gait Training, Therapeutic Exercise,Balance Retraining,Post Op Education, Discharge Planning,Hot or Cold Pack,Neuromuscular Re-ed, Coordination Retraining,Manual Therapy Other Recommendations and Next Treatment ambulation Focus Recommendations To Nursing Amount of Assist Needed 2 Person Assist Discharge Recommendations PT Discharge Recommendations SNF Rehab
[2019-05-16] MEDS: PANTOPRAZOLE 40 MG VIAL IV ×2 (11:26→22:13)
[2019-05-16] MEDS: SODIUM CHLORIDE 0.9% FLUSH 10 ML IV ×3 (11:26→22:15)
[2019-05-16] MEDS: POLYETHYLENE GLYCOL 3350 17 GM POWD.PACK PO (12:10)
[2019-05-16] MEDS: ONDANSETRON 4 MG/2 ML INJ IV ×2 (12:17→17:21)
[2019-05-16] MEDS: OXYCODONE IR 5 MG TABLET PO ×2 (12:17→17:24)
[2019-05-16] MEDS: BISACODYL 10 MG SUPP PR (12:25)
[2019-05-16] MEDS: FLEETS ENEMA 1 EACH PR (13:55)
--- NOTE | 2019-05-16 14:26 | PC.NURSE ---
Day Shift- Pt A&OX4, able to make needs known using call light. High fall risk precautions in place. Bed/Chair alarm on. Pt OOB with 1PA using walker for small steps in room. Midline abd incision well approximated with ashley intact, no S/S of infection. Pt c/o abd bloating, no nausea this AM, no belching. states having micro amounts of flatus. Around lunch time pt having mild nausea, 7/10 pain to upper abd. PRN Zofran IV given at 1220 with PRN Oxycodone at 1220 as pt has had a history upset stomach with oxycodone use. Pt willing to try. Pt given X1 dose of Miralax as well. Encouraged pt also taking the Bisacodyl supp now interrupting lunch to try and release flatus and have BM, pt also willing. Bisacodyl supp X1 given at 1225 with no effect besides additional micro flatus amounts. Fleet enema per order X1 given at 1355. Pt OOB to commode and had 2 small to moderate sized formed hard BM with 6 very small formed BM's. Pt stated feeling less bloating and more comfortable. Reported to Case management regarding holding discharge today to monitor for an increase in bowel activity. Per earlier conversation with Dr. Thomas around 1350, discharge order will be placed pending BM activity and okay to discontinue discharge order if not satisfactory BM produced.
--- NOTE | 2019-05-16 15:59 | CM.DPC ---
DCP/Assessment: Reviewed chart. Spoke with surgeon whom indicates that patient medically stable for discharge. Initial plan was [facility] then patient requested to go home with . After therapy evaluation today and input from family it was decided that safest plan was for patient to d/c to [facility] for short SNF stay. Nursing reports in AM rounds that patient has not had BM x10dys. Surgeon aware and will order medicine to assist. As of 2:30pm patient has not had adequate BM. Therefore, d/c cancelled for today. It it is anticipated that patient will be medically cleared for d/c on 05-17-19. Notified Ann Marie at [facility]. She will call in AM. She hopes to have patient picked up around 10:30AM. PASRR completed. P: [facility] when medically stable. JASKARAN Sibley
[2019-05-17] MEDS: ONDANSETRON 4 MG/2 ML INJ IV ×3 (00:01→10:06)
[2019-05-17 04:35] VITALS: BP 130/74; PULSE 96; RESP 21; TEMP 36.7; O2SAT 94
[2019-05-17] MEDS: OXYCODONE IR 5 MG TABLET PO ×3 (04:52→10:04)
[2019-05-17] MEDS: ACETAMINOPHEN 325 MG TABLET 650 MG PO (06:26)
[2019-05-17 08:00] VITALS: BP 131/77; PULSE 97; RESP 16; TEMP 36.9; O2SAT 94
--- NOTE | 2019-05-17 08:39 | PM.DS.1 ---
History of Present Illness History of Present Illness Chief complaint: epigastric ruq pain,nausea Narrative: 74-year-old male with a perforated peptic ulcer. The patient is a 74-year-old male recently began taking increased amounts of uncoated aspirin over the past 4 days developed acute onset of epigastric pain tonight associated with nausea and vomiting. He was flown from [facility], [place] shows free air as well as fluid around the stomach and the duodenum. His medical history is significant for Crohn's disease remotely. He had multiple endo rectal procedures done in the for Crohn's colitis. His Crohn's disease and has been in remission for the past two decades and he is not currently on therapy. Medical history significant for congestive heart failure, atrial fibrillation and previous exploratory laparotomy in [facility] for unclear reasons. Discharge Providers Provider Date of admission: 05/10/19 01:08 Discharge Date: 05/17/19 Consults: 05/12/19 09:14 Consult to Physical Therapy Evaluate & Treat Comment: Physician Instructions: Evaluate and Treat Discharge provider: Minh Thomas MD Summary Hospital Course Discharge Diagnosis: Peptic ulcer Hospital Course: Patient presented with a perforated peptic ulcer. He was taken to the operating room for exploratory laparotomy with Scott patch repair a pyloric channel peptic ulcer. The postoperatively the patient did well. He had slow return of bowel function. His diet was slowly advanced and he is tolerating a soft diet at the time of discharge. He is being treated for empiric H pylori, testing is pending, with amoxicillin clarithromycin metronidazole and Protonix. Status at Discharge Cognitive/behavioral status at discharge: oriented Overall status at discharge: patient is not back to baseline Time Spent with Patient Time spent: Greater than 30 minutes Exam Vital Signs (past 8 hours): - 05/17/19 04:35 05/17/19 08:00 Temperature 98.0 F 98.4 F Pulse Rate 96 H 97 H Respiratory Rate 21 16 Blood Pressure 130/74 131/77 Pulse Oximetry 94 94 Oxygen Delivery Method Room Air Oxygen Flow Rate 0 Narrative Exam Narrative: General adult male alert oriented no acute distress Chest nonlabored respirations no audible wheezes Abdomen soft incision clean dry intact cyst, ashley Objective Labs Result Diagrams: 05/13/19 04:35 05/13/19 04:35 Discharge Plan Discharge Plan Patient Disposition: Assisted Living Transfer to: [facility] Discharge Med Rec/Prescriptions Prescriptions: New clarithromycin 500 mg Tablet 500 mg PO BID 10 Days Qty: 20 RF: 0 metronidazole 500 mg Tablet 500 mg PO BID 10 Days Qty: 20 RF: 0 amoxicillin 250 mg Capsule 1,000 mg PO BID 10 Days Qty: 80 RF: 0 pantoprazole [Protonix] 40 mg tablet,delayed release (DR/EC) 40 mg PO DAILY Qty: 30 RF: 0 Continued furosemide 40 mg Tablet 40 mg PO DAILY RF: 0 hydrochlorothiazide 25 mg Tablet 25 mg PO DAILY RF: 0 digoxin 125 mcg Tablet 125 mcg PO DAILY RF: 0 Cardiprin 150 mg PO DAILY RF: 0 diazepam 10 mg Tablet 20 mg PO BEDTIME RF: 0 magnesium 250 mg Tablet 250 mg PO DAILY RF: 0 Follow up/Referrals: Minh Thomas MD [Physician] - Discharge Orders: Discharge (Order); Ordered 05/17/19 Ordered By: Minh Thomas Provider Discharge Instructions Diet: Regular Activity: No lifting >20 lbs for 4 weeks Skin/Wound/Dressing Care Report to your healthcare provider any signs of infection, such as:: chills, fever, increased pain, unusual drainage and unusual redness [facility] Rehab type: Physical therapy and Occupational therapy Visit Report/Discharge Packet Instructions: [facility]: Wound Care Stand Alone Forms: Surgery Discharge Quality VTE Deep Vein Thrombosis/Pulmonary Embolism Present on Admission: No
--- NOTE | 2019-05-17 09:05 | PT.IPTN ---
Current Diagnoses Peptic ulcer, site unspecified, unspecified as acute or chronic, without hemorrhage or perforation (05/10/19) Surgery Performed Operation Date: 05/10/19 01:55 Actual Procedures p Exploratory Laparotomy GEN, Repair Peptic Ulcer(Not Applicable) - Minh Thomas MD Physical Therapy Treatment Note M2 PT-IP Current Condition Start: 05/12/19 10:40 Freq: NEEDED Status: Active Protocol: Document 05/12/19 09:40 AB (Rec: 05/12/19 10:54 AB [id number]) Physical Therapy Current Condition Current Condition Evaluation Date 05/12/19 Treatment Diagnosis perforated abdominal viscus s/ p ex-lap; difficulty in walking Onset Date 05/10/19 Precautions Abdominal Surgery Precautions Log Roll,Lifting Restrictions, Gait Belt above Incisional Area M3 PT-IP Subjective Start: 05/12/19 10:40 Freq: NEEDED Status: Active Protocol: Document 05/17/19 09:01 AMB (Rec: 05/17/19 09:05 AMB [id number]) Subjective Physical Therapy Visit Type Type Treatment Note Visit Start Time 08:40 Visit Stop Time 09:00 Total Visit Minutes 20 Physical Therapy Visit Comments Patient Comments Pt states he is feeling better today than yesterday, overall feels less fatigued. Therapy Pain Assessment Pain When Pain Assessed At Rest Pain Present Pain Present Pain Reported Location Abdomen Intensity 3 Scale Used Numeric (1 - 10) M4 PT-IP Mobility and Gait Start: 05/12/19 10:40 Freq: NEEDED Status: Active Protocol: Document 05/17/19 09:01 AMB (Rec: 05/17/19 09:05 AMB [id number]) PT-Bed Mobility Assessment Rolling Type of Rolling Log Rolling,Roll to Right Level of Assist Standby Assistance Supine to Sit Supine to Sit Minimal Assistance Sit to Supine Sit to Supine Minimal Assistance PT-Transfer Assessment Sit to and From Stand Sit to and from Stand Contact Guard Assistance,1 Person Assistance,Use of Upper Extremities Equipment Transfer Assistive Device Gait Belt,Front Wheeled Walker Orthotic/Prosthetic Devices or Brace: No Gait Assessment Gait Gait Assistance Required: Contact Guard Assist Distance (Feet) 200 Able to Maintain Weight Bearing Status Yes During Gait Assistive Devices Assistive Device Gait Belt,Front Wheeled Walker Gait Deviations General Gait Pattern Decreased Stride Length, Decreased Feet Clearance, Flexed Trunk,Step-to Gait Factors Limiting Gait Function Factors Limiting Gait Function Decreased Activity Tolerance, Limited Range of Motion,Pain, Poor Balance Comments Gait Comments Pt continues to ambulate slowly and need UE support, but overall tolerance for activity improved. Pt stood at toilet to void urine with SBA, and took 3 steps with Johanne without FWW, but would continue to recommend FWW for safety at this time. M5 PT-IP Objective Assessments Start: 05/12/19 10:40 Freq: NEEDED Status: Active Protocol: Document 05/12/19 09:40 AB (Rec: 05/12/19 10:54 AB [id number]) Orientation Orientation/Cognition Level of Alertness Lethargic Orientation Name,Situation Safety Awareness Decreased Safety Awareness Memory Description Short Term Impaired Gross Range of Motion Lower Extremity ROM Assessment Within Functional Limits Strength Comments Strength Comments RLE: 4+/5 LLE: 4-/5 Sensation Assessment Sensation Gross Sensation WNL Muscle Tone Muscle Tone WNL Yes M6 PT-IP Treatment Start: 05/12/19 10:40 Freq: NEEDED Status: Active Protocol: Document 05/12/19 09:40 AB (Rec: 05/12/19 10:54 AB [id number]) Physical Therapy Treatment Education Education Provided Precautions,Safety M7 PT-IP Assessment and Plan Start: 05/12/19 10:40 Freq: NEEDED Status: Active Protocol: Document 05/17/19 09:01 AMB (Rec: 05/17/19 09:05 AMB [id number]) PT Summary Assessment and Plan Summary Assessment Summary Overall pt reports he is feeling better, walked further and faster today, but not close to his previous baseline of walking without assistive device. Goals Bed Mobility Goal Standby Assistance Transfer Goal Standby Assistance,Front Wheeled Walker Gait Goal Standby Assistance,Front Wheel Walker Gait Distance 150 Other Goals up/down 1 step CGA Days to Meet Goals 10 Frequency of Treatment Frequency Of Treatment Once a Day Treatment Plan Physical Therapy Treatment Plan Bed Mobility Training,Transfer Training,Gait Training, Therapeutic Exercise,Balance Retraining,Post Op Education, Discharge Planning,Hot or Cold Pack,Neuromuscular Re-ed, Coordination Retraining,Manual Therapy Other Recommendations and Next Treatment ambulation Focus Recommendations To Nursing Amount of Assist Needed 1 Person Assist Discharge Recommendations PT Discharge Recommendations SNF Rehab
[2019-05-17] MEDS: FUROSEMIDE 40 MG TABLET PO (10:03)
[2019-05-17] MEDS: metroNIDAZOLE 500 MG TABLET PO (10:04)
[2019-05-17] MEDS: hydroCHLOROthiazide 25 MG TABLET PO (10:05)
[2019-05-17] MEDS: PANTOPRAZOLE 40 MG VIAL IV (10:07)
[2019-05-17 10:10] VITALS: BP 131/77; PULSE 97
[2019-05-17] MEDS: CLARITHROMYCIN 500 MG TABLET PO (10:10)
[2019-05-17] MEDS: DIGOXIN 0.125 MG TABLET 0.0625 MG PO (10:10)
[2019-05-17] MEDS: AMOXICILLIN 250 MG CAPSULE 1000 MG PO (10:11)
[2019-05-17] MEDS: SODIUM CHLORIDE 0.9% FLUSH 10 ML IV (10:18)
--- NOTE | 2019-05-17 10:35 | CM.DPC ---
DCP Cont: Faxed signed meds, PASRR and discharge summary to [facility] at fax # [phone]. Fax confirmation scanned in. Rehana Taylor, [place] [employer] Specialist
--- NOTE | 2019-05-17 15:01 | CM.DPNOTE ---
DC Note: DC to [facility] today. Dr Thomas completing final orders. All arranged by JASKARAN Gipson w/assist in coordination by Shampoo Assistant Rehana yesterday 05.16.19. Pt remains aware and agreeable to plan. P: DC to [facility] via w/c. JW
== END 2019-05-17 10:45 | DRG 327 ==
LOC: ED 23:54 → AC 05-10 01:09 → ICU 05-10 04:38 → AC 05-13 11:04
PROVIDERS: Specialist; Admitting Provider Surgery; Emergency Provider Emergency Medicine; Visit Provider Surgery
PROC: 0DQ70ZZ Repair Stomach, Pylorus, Open Approach (ICD-10-PCS; CPT 49000; principal; 2019-05-10 01:55)
DX: K25.5 Chronic or unspecified gastric ulcer with perforation (principal); I48.19 Other persistent atrial fibrillation; R07.9 Chest pain, unspecified; I50.9 Heart failure, unspecified
CPT/HCPCS: 36415; 36592; 43840; 49905; 74177; 80048; 80053; 82550; 82553; 83690; 83735; 84100; 84484; 85025; 85610; 85730; 86677; 87797; 93005; 93010; 96365; 96375; 97116; 97162; 97530; 99233; 99285; 99291; C9113; J0131; J0330; J1100; J1170; J1450; J2060; J2405; J2543; J2704; J3010; J3230; Q9967

== ENCOUNTER → 2021-04-03 13:21 | Outpatient (CLI) | payer MEDICARE, SELFPAY ==
[2019-05-22 14:04] VITALS: BMI 30.7
[2021-04-03 18:36] LABS: Add Manual Diff / Slide Review NO; Basophils Absolute Auto 100 /uL (0-100); Basophils Percent Auto 0.9 % (0-2); Eosinophils Absolute Auto 100 /uL (0-450); Eosinophils Percent Auto 2.3 % (2-4); Hematocrit 45.9 % (41-53); Hemoglobin 15.4 g/dL (13.5-17.5); Lymphocytes Absolute Auto 1800 /uL (1100-4500); Lymphocytes Percent Auto 28.8 % (25-40); Mean Corpuscular HGB Conc 33.6 % (30-36); Mean Corpuscular Hemoglobin 30.9 PG (26-34); Monocytes Absolute Auto 500 /uL (0-900); Neutrophils Absolute Auto 3700 /uL (1500-7000); Platelet Count 173 X10^3/uL (150-400); Red Blood Cell Count 4.99 X10^6/uL (4.5-5.9); Red Cell Distribution Width 13.5 % (11.6-14.8); White Blood Cell Count 6.1 X10^3/uL (4.5-11.0)
[2021-04-03 18:55] LABS: Digoxin < 0.4 ng/mL (0.8-2.0)
[2021-04-03 18:57] LABS: Alanine Aminotransferase 15 IU/L (<50); Albumin Globulin Ratio 1.3 (1.0-2.8); Alkaline Phosphatase 116 U/L (38-126); Aspartate Aminotransferase 29 IU/L (17-59); BUN Creatinine Ratio 26.2 (6-22); Bilirubin Total 0.5 mg/dL (0.2-1.3); Blood Urea Nitrogen 28 mg/dL (9-20); Calcium 9.2 mg/dL (8.4-10.2); Carbon Dioxide 33 mmol/L (22-32); Chloride 100 mmol/L (98-107); Estimated Glomerular Filt Rate > 60.0 mL/min (>60); Glucose 107 mg/dL (80-110); HEMOLYSIS < 15 (0-50); Sodium 142 mmol/L (137-145)
[2021-04-03 19:21] LABS: TSH w/ Reflex to FT4 1.16 uIU/mL (0.47-4.68)
== END ==
PROVIDERS: Visit Provider Family Medicine
DX: I48.91 Unspecified atrial fibrillation (principal); K50.90 Crohn's disease, unspecified, without complications
CPT/HCPCS: 80053; 80162; 84443; 85025

== ENCOUNTER → 2022-01-21 10:00 | Outpatient (CLI) | payer MEDICARE, SELFPAY ==
[2022-01-06 15:45] VITALS: BMI 30.7
[2022-01-21 19:06] LABS: BUN Creatinine Ratio 27.7 (6-22); Blood Urea Nitrogen 23 mg/dL (9-20); Calcium 9.3 mg/dL (8.4-10.2); Carbon Dioxide 31 mmol/L (22-32); Chloride 103 mmol/L (98-107); Cholesterol 170 mg/dL (140-199); Estimated Glomerular Filt Rate > 60 mL/min (>60); Glucose 110 mg/dL (80-110); HDL Cholesterol 52 mg/dL (40-60); HEMOLYSIS 16 (0-50); LDL Cholesterol Calculated 107 mg/dL (<100); Potassium 4.5 mmol/L (3.4-5.1); Sodium 140 mmol/L (137-145); Triglycerides 56 mg/dL (35-150)
[2022-01-21 19:08] LABS: NT-proBNP (BNP-Adult 18+) 810 pg/mL (<125)
[2022-01-21 19:10] LABS: Add Manual Diff / Slide Review NO; Basophils Absolute Auto 0 /uL (0-100); Basophils Percent Auto 0.7 % (0-2); Eosinophils Absolute Auto 300 /uL (0-450); Eosinophils Percent Auto 5.2 % (2-4); Hemoglobin 14.5 g/dL (13.5-17.5); Lymphocytes Absolute Auto 1400 /uL (1100-4500); Lymphocytes Percent Auto 27.8 % (25-40); Mean Corpuscular HGB Conc 33.7 % (30-36); Mean Corpuscular Hemoglobin 30.7 PG (26-34); Mean Corpuscular Volume 91.1 fL (80-100); Monocytes Absolute Auto 600 /uL (0-900); Monocytes Percent Auto 10.8 % (3-14); Neutrophils Absolute Auto 2900 /uL (1500-7000); Neutrophils Percent Auto 55.5 % (50-75); Platelet Count 173 X10^3/uL (150-400); Red Blood Cell Count 4.72 X10^6/uL (4.5-5.9); Red Cell Distribution Width 13.7 % (11.6-14.8); White Blood Cell Count 5.2 X10^3/uL (4.5-11.0)
[2022-01-21 19:26] LABS: TSH w/ Reflex to FT4 0.99 uIU/mL (0.47-4.68)
== END ==
PROVIDERS: Visit Provider Family Medicine
DX: K21.9 Gastro-esophageal reflux disease without esophagitis (principal); I50.9 Heart failure, unspecified; H53.2 Diplopia; H53.9 Unspecified visual disturbance; I10 Essential (primary) hypertension; I48.91 Unspecified atrial fibrillation
CPT/HCPCS: 80048; 80061; 83880; 84443; 85025

== ENCOUNTER → 2024-05-02 09:22 | Outpatient (CLI) | payer MEDICARE, SELFPAY ==
[2022-01-06 15:45] VITALS: BMI 30.7
[2024-05-02 19:43] LABS: Cholesterol 139 mg/dL (140-199); Glucose 114 mg/dL (80-110); HDL Cholesterol 40 mg/dL (40-60); LDL Cholesterol Calculated 88 mg/dL (<100); Triglycerides 54 mg/dL (35-150)
[2024-05-02 20:33] LABS: Hep C Virus Ab w/Reflex Quant NEGATIVE s/c (NEGATIVE)
[2024-05-03 02:58] LABS: Prostate Specific Antigen Scrn 2.83 ng/mL (0.1-4.0)
== END ==
PROVIDERS: PCP Family Medicine; Visit Provider Family Medicine
DX: Z13.1 Encounter for screening for diabetes mellitus (principal); Z13.6 Encounter for screening for cardiovascular disorders; Z12.5 Encounter for screening for malignant neoplasm of prostate; Z11.59 Encounter for screening for other viral diseases; Z13.220 Encounter for screening for lipoid disorders
CPT/HCPCS: 80061; 82947; 86803; G0103

== ENCOUNTER → 2025-02-20 13:33 | Outpatient (CLI) | payer MEDICARE, SELFPAY ==
[2025-02-19 10:36] VITALS: BMI 30.7
[2025-02-20 19:16] LABS: Add Manual Diff / Slide Review NO; Hematocrit 42.9 % (41-53); Hemoglobin 14.7 g/dL (13.5-17.5); Lymphocytes Absolute Auto 1900 /uL (1100-4500); Mean Corpuscular HGB Conc 34.3 % (30-36); Mean Corpuscular Hemoglobin 30.8 PG (26-34); Mean Corpuscular Volume 89.9 fL (80-100); Platelet Count 143 X10^3/uL (150-400)
[2025-02-20 19:26] LABS: Hemoglobin A1C% w Est Avg Glu 5.6 % (4.0-6.0)
[2025-02-20 19:34] LABS: Alanine Aminotransferase 20 IU/L (<50); Albumin 4.3 g/dL (3.5-5.0); Albumin Globulin Ratio 1.5 (1.0-2.8); Alkaline Phosphatase 104 U/L (38-126); Blood Urea Nitrogen 24 mg/dL (9-20); Calcium 9.3 mg/dL (8.4-10.2); Carbon Dioxide 30 mmol/L (22-32); Chloride 104 mmol/L (98-107); Estimated Glomerular Filt Rate > 60 mL/min (>60); Globulin 2.8 g/dL (1.7-4.1); Glucose 92 mg/dL (70-99); HEMOLYSIS < 15 (0-50); Potassium 4.6 mmol/L (3.4-5.1); Sodium 138 mmol/L (137-145); Total Protein 7.1 g/dL (6.3-8.2)
== END ==
PROVIDERS: PCP Family Medicine; Visit Provider Family Medicine
DX: I10 Essential (primary) hypertension (principal); R73.09 Other abnormal glucose; R35.89 Other polyuria; D49.89 Neoplasm of unspecified behavior of other specified sites
CPT/HCPCS: 80053; 83036; 85025; 85651; 86140

== ENCOUNTER → 2025-03-05 13:22 | Outpatient (CLI) | payer MEDICARE, SELFPAY ==
[2025-02-19 10:36] VITALS: BMI 30.7
--- NOTE | 2025-03-05 13:32 | DI.US.S_ITS ---
US axillary only rt, MM diagnostic mammo BI: 03/05/2025 BI-RADS: 5 CLINICAL: 80-year old male for bilateral diagnostic mammogram and right diagnostic breast ultrasound. No personal or first-degree family history of breast cancer. History of melanoma and other skin cancers. The patient reports a palpable abnormality (less than 1 month) in the right axilla. PRIOR EXAMS No prior examinations available. MAMMOGRAPHY TECHNIQUE: 2D and 3D (tomosynthesis) digital mammographic views obtained, with additional images as needed for full coverage. Current study was also evaluated with a Computer Aided Detection (CAD) system. ULTRASOUND TECHNIQUE Exam is limited to the right axilla. Real-time whitfield scale and color doppler imaging of the area of clinical interest was performed with image documentation. DENSITY A. The breasts are almost entirely fatty. MAMMOGRAPHY FINDINGS Right (finding-1): MLO only, Axilla, measuring 3.9cm: Underlying surface marker and correlating with palpable lump there is a pathological-appearing lymph node of high-density. Left: Benign-appearing calcification noted on the left. There are no suspicious masses, calcifications, or other findings in the breast. ULTRASOUND FINDINGS Right (finding-1): Axilla, measuring 3.2 x 2.6 x 2 cm: Underlying surface marker and correlating with palpable lump and also with findings on mammogram there is a lymph node with hilar obliteration. Doppler shows non-hilar vascularity. There is heterogeneous internal echogenicity with solid and cystic components. IMPRESSION: Right (Lymph Node): Axilla, measuring 3.2 x 2.6 x 2 cm * Highly Suggestive of Malignancy. Left * No evidence of malignancy with benign findings. RECOMMENDATIONS Right: Axilla * Ultrasound-guided biopsy for further evaluation. COMMENTS: Findings and recommendations were conveyed to the patient during today's evaluation by Dr. Barrera. OVERALL ASSESSMENT CATEGORY BI-RADS-5: Highly Suggestive of Malignancy. ELECTRONICALLY SIGNED: Sandra Roche M.D. on 03/05/2025 at 03:25:11 PM PT Interpreting Station ID: [id number]
== END ==
PROVIDERS: PCP Family Medicine; Referring Provider Family Medicine; Visit Provider Surgery
DX: R92.8 Other abnormal and inconclusive findings on diagnostic imaging of breast (principal); N63.31 Unspecified lump in axillary tail of the right breast; R59.0 Localized enlarged lymph nodes; R92.313 Mammographic fatty tissue density, bilateral breasts; Z85.820 Personal history of malignant melanoma of skin; Z85.828 Personal history of other malignant neoplasm of skin
CPT/HCPCS: 76882; 77066; G0279